=== PATIENT | female | born 1985 | race Caucasian/White ===

== ENCOUNTER 2020-04-25 00:20 | Emergency (ER) | payer MEDICAID, SELFPAY ==
[2020-04-25 00:22] VITALS: BP 94/59; PULSE 120; RESP 16; TEMP 35.6; O2SAT 98; BMI 20.9
--- NOTE | 2020-04-25 01:04 | ED_ITS ---
HPI - Female Genitourinary General Chief complaint: Urogenital-Female Stated complaint: Pain urinaring Time Seen by Provider: 04/25/20 01:25 Source: patient Mode of arrival: wheelchair Limitations: no limitations History of Present Illness HPI Narrative: 35-year-old female presents with 1 day of urinary tract symptoms and pyuria. she has taken Motrin and Naprosyn throughout the day but the pain to the left flank has gotten worse, and she is unable to tolerate eating or drinking at this time. She is having a difficult time walking because of left flank pain, and needed to be brought in to the emergency department from the waiting room via wheelchair. She denies chest pain and pressure, palpitations, shortness of breath, edema, nausea, vomiting, constipation, diarrhea, sick contacts, risk for sexually transmitted infection, vaginal discharge, abnormal vaginal bleeding, headache, dizziness, lightheadedness, and weakness. MD elicited complaint: dysuria and UTI Onset (ago): day(s) (1) Location of symptoms: urethra Severity: moderate Female Urogenital Radiation: Non-Radiating Severity scale (1-10): 7 Quality of pain: burning Consistency: intermittent Vaginal discharge: none Vaginal bleeding: none Urinary symptoms: Dysuria, Urgency and Frequency Exacerbating factors: urination Relieving factors: none Associated symptoms: denies other symptoms Treatment prior to arrival: none Sexual activity: No Patient : No Related Data Allergies Allergy/AdvReac Type Severity Reaction Status Date / Time No Known Allergies Allergy Verified 04/25/20 00:25 Review of Systems Review of Systems: Constitutional: No Fever, No Chills ENT/Mouth: No sore throat Eyes: No Eye Pain, No Swelling, No Redness Cardiovascular: No Chest Pain, No SOB Respiratory: No Cough, No Sputum, No Wheezing Gastrointestinal: positive Nausea, positive Vomiting, No Diarrhea, positive abdominal pain Genitourinary: positive Dysuria, positive urinary frequency, No Hematuria, positive Flank Pain, no hesitancy Musculoskeletal: No joint pain, No Myalgias Skin: No Skin Lesions, No rash Neuro: No Weakness, No Numbness, No Headache Psych: No Anxiety/Panic, No Depression Heme/Lymph: No Bruising, No Lymphadenopathy Endocrine: No Polyuria, No Polydipsia Yes all other systems are reviewed and are negative PMFSH Past Medical History Attestation statement: The following information was validated with the patient. Medical History Anxiety Depression Kidney stones Social History Social History Alcohol intake: unknown Smoked in Last 30 Days: No Use of substances other than those prescribed or required for medical reasons: No Advance Directives: No Advance Directives Information Provided: No Physical Exam Vital Signs: Vital Signs: Last Vital Signs Temp 96.0 F L 04/25/20 00:22 Pulse 120 H 04/25/20 00:22 Resp 16 04/25/20 00:22 BP 94/59 L 04/25/20 00:22 Pulse Ox 98 04/25/20 00:22 Body Mass Index 20.9 Appearance: Alert. Oriented X3. Moderate distress. Head: Normal external exam. Normocephalic. Atraumatic. No Blackwell signs noted. No raccoon eyes noted Eyes: PERRLA. EOMI. Conjunctiva and sclera normal. Eyelids normal. ENT: TM's Normal. Pharynx normal. Uvula midline. Moist mucous membranes. No trismus noted. No drooling noted. No muffled voice noted. Neck: Normal inspection. Neck supple. No adenopathy. No meningeal signs. CVS: tachycardic. Heart sound normal. No murmurs noted. Pulses equal to all extremities. Respiratory: No respiratory distress. Painless inspiration. Breath sounds normal. No wheezes/rales/rhonchi noted. Chest nontender. No accessory muscle usage noted or decreased air movement noted. Abdomen: Soft and tender to left lower quadrant and suprapubic area, positive psoas, negative Liu's, McBurney's, and obturator. Bowel sounds normal in all 4 quadrants. No distention noted. No organomegaly noted. No visible injury noted. Back: Positive left-sided CVA tenderness. Full range of motion noted. Skin: Skin warm and dry. Normal skin color. Normal skin turgor. No rashes/lesions/lacerations noted. Extremities: No lower extremity edema. Extremities exhibit normal range of motion. Neuro: cranial nerves 2-12 intact, no focal neural deficits, strength 5/5 to all extremities, No motor deficit. No sensory deficit. Course Course Course Narrative: 35-year-old female with past medical history of kidney stones, presents with left flank pain, dysuria, tachycardia, and hypotension. Triage vital signs indicate heart rate of 120, blood pressure of 94/59, and an oral temp of 96.0?. Fluid initiation started, 2 L infusing, 30 millilit ers/kilogram is 1770 mL of fluid. Lactic acid, cultures, CBC, Chem 7, urinalysis are pending. CT scan of the abdomen and pelvis pending. Order for ceftriaxone 1 g IV. Patient given 2 mg of morphine for pain, she did take 4 tablets of naproxen, and multiple doses of ibuprofen throughout the day With poor effect. Reevaluation(s) Reevaluation #1: CBC within normal limits, white count 8.9, no indication of sepsis at this time. We will still continue with fluid resuscitation as blood pressure is soft, Urinary negative which rules out ectopic , urinalysis indicates heme which is more likely kidney stone. Time: 01:55 Reevaluation #2: sign out to Dr Trejo Time: 02:20 MDM - Female Genitourinary MDM Narrative Medical decision making narrative: Sepsis, urosepsis, renal colic, pyelonephritis, acute abdomen, ectopic Differential Diagnosis Differential diagnosis: Likely urinary tract infection, ovarian cyst, ruptured ovarian cyst and cystitis Medical Records Attestation: I reviewed the patient's medical records. Lab Data Attestation: I reviewed the patient's lab results. Result diagrams: 04/25/20 01:35 04/25/20 01:35 Labs: Lab Results 04/25/20 04/25/20 04/25/20 Range/Units 01:35 01:35 01:35 WBC 8.9 (4.8-10.8) X10*3/uL RBC 4.54 (4.20-5.50) X10*6/uL Hgb 13.7 (12.0-16.0) g/dl Hct 40.7 (37-47) % MCV 89.6 (80-98) fL MCH 30.2 (27.0-33.0) pg MCHC 33.7 (31.0-35.0) g/dl RDW 12.6 (11.0-16.0) % Plt Count 275 (160-400) X10*3/uL MPV 9.5 (9.4-12.3) fL Immature Gran % (Auto) 0.2 (0.0-0.4) % Neut % (Auto) 50.6 (45-73) % Lymph % (Auto) 37.9 (20-40) % [place] % (Auto) 7.9 (2-11) % Eos % (Auto) 2.8 (0-4) % Baso % (Auto) 0.6 (0-2) % Lymph # (Auto) 3.4 (1.2-4.9) X10*3/uL [place] # (Auto) 0.7 (0.1-1.2) X10*3/uL Eos # (Auto) 0.3 (0.0-0.4) X10*3/uL Baso # (Auto) 0.1 (0.0-0.2) X10*3/uL Abs Immat Gran (auto) 0.02 (0.00-0.03) X10*3/uL Absolute Neuts (auto) 4.5 (2.0-8.3) X10*3/uL Absolute Nucleated RBC 0.000 (0.0-0.012) X10*3/uL Nucleated RBC % (auto) 0.0 (0.0-0.2) /100WBC Sodium 143 (135-145) mmol/L Potassium 3.5 (3.3-5.1) mmol/l Chloride 107 (96-108) mmol/L Carbon Dioxide 29 (22-29) mmol/L Anion Gap 11 L (12-20) BUN 11 (9-16) mg/dL Creatinine 0.76 (0.5-1.4) mg/dL Estim Creat Clear Calc 98.1 Estimated GFR > 60 Random Glucose 80 (60-115) mg/dL Lactic Acid 1.5 (0.5-2.0) mmol/L Calcium 9.5 (8.4-10.2) mg/dL Urine Color Urine Appearance Urine pH (5.0-8.0) Ur Specific [place] (1.005-1.025) Urine Protein (NEG-TRACE) MG/DL Urine Glucose (UA) (NEG) MG/DL Urine Ketones (NEG) MG/DL Urine Blood (NEG) Urine Nitrite (NEG) Ur Leukocyte Esterase (NEG) Urine RBC (0) /HPF Urine WBC (0-4) /HPF Ur Squamous Epith Cells /LPF Uric Acid Crystals /LPF Amorphous Sediment /LPF Urine Bacteria /LPF Urine Mucus /LPF Urine Test (NEGATIVE) 04/25/20 04/25/20 Range/Units 01:39 01:39 WBC (4.8-10.8) X10*3/uL RBC (4.20-5.50) X10*6/uL Hgb (12.0-16.0) g/dl Hct (37-47) % MCV (80-98) fL MCH (27.0-33.0) pg MCHC (31.0-35.0) g/dl RDW (11.0-16.0) % Plt Count (160-400) X10*3/uL MPV (9.4-12.3) fL Immature Gran % (Auto) (0.0-0.4) % Neut % (Auto) (45-73) % Lymph % (Auto) (20-40) % [place] % (Auto) (2-11) % Eos % (Auto) (0-4) % Baso % (Auto) (0-2) % Lymph # (Auto) (1.2-4.9) X10*3/uL [place] # (Auto) (0.1-1.2) X10*3/uL Eos # (Auto) (0.0-0.4) X10*3/uL Baso # (Auto) (0.0-0.2) X10*3/uL Abs Immat Gran (auto) (0.00-0.03) X10*3/uL Absolute Neuts (auto) (2.0-8.3) X10*3/uL Absolute Nucleated RBC (0.0-0.012) X10*3/uL Nucleated RBC % (auto) (0.0-0.2) /100WBC Sodium (135-145) mmol/L Potassium (3.3-5.1) mmol/l Chloride (96-108) mmol/L Carbon Dioxide (22-29) mmol/L Anion Gap (12-20) BUN (9-16) mg/dL Creatinine (0.5-1.4) mg/dL Estim Creat Clear Calc Estimated GFR Random Glucose (60-115) mg/dL Lactic Acid (0.5-2.0) mmol/L Calcium (8.4-10.2) mg/dL Urine Color PATTY Urine Appearance HAZY Urine pH 5.5 (5.0-8.0) Ur Specific [place] >= 1.030 H (1.005-1.025) Urine Protein 1+ H (NEG-TRACE) MG/DL Urine Glucose (UA) NEG (NEG) MG/DL Urine Ketones 15 (NEG) MG/DL Urine Blood 2+ H (NEG) Urine Nitrite NEG (NEG) Ur Leukocyte Esterase NEG (NEG) Urine RBC 5-9 H (0) /HPF Urine WBC 0-2 (0-4) /HPF Ur Squamous Epith Cells 3+ /LPF Uric Acid Crystals 1+ /LPF Amorphous Sediment 2+ /LPF Urine Bacteria 1+ /LPF Urine Mucus 2+ /LPF Urine Test NEGATIVE (NEGATIVE)
--- NOTE | 2020-04-25 01:24 | CT_ITS ---
EXAMINATION: CT ABDOMEN AND PELVIS WITHOUT CONTRAST CLINICAL INFORMATION: Abdominal pain, left flank pain. COMPARISON: 06/16/2019. TECHNIQUE: Contiguous axial thin section helical images of the abdomen and pelvis were performed without oral or IV contrast. The data set was reformatted in the coronal and sagittal planes and reviewed on an independent workstation. DLP: 422 mGy-cm. FINDINGS: The visualized lung bases are clear. The visualized portions of the heart are unremarkable. The liver is of normal size and attenuation without focal lesions nor intrahepatic biliary ductal dilation. A normal gallbladder is identified. There is no wall thickening or discernible pericholecystic fluid. The spleen, pancreas, adrenal glands are unremarkable. Both kidneys are of normal size and attenuation without hydronephrosis. Within the lower pole of the right kidney, there is an approximately 2 mm nonobstructive calculus. There is no abdominal free fluid. There is neither mesenteric nor retroperitoneal lymphadenopathy. Normal unopacified loops of small and large bowel are identified. There is no pelvic free fluid. The urinary bladder is unremarkable. There is neither pelvic nor inguinal lymphadenopathy. Bone windows: Neither sclerotic nor lytic bone lesions are identified. Posterior spinal fusion hardware is intact. CT/CT abdomen pelvis wo con IMPRESSION: No acute abdominal or pelvic inflammatory or infectious processes. 2 mm nonobstructive right lower pole renal calculus. Automated exposure control (Care Dose) Adjustment of the mA and/or kv according to patient size (this includes techniques or standardized protocols for targeted exams where dose is matched to indication / reason for exam; i.e. extremities or head).
[2020-04-25 01:41] LABS: PLT CLUMP 1; SCAN SMEAR FLAG 1
[2020-04-25] MEDS: Morphine Sulfate 2 MG/ML CARTRIDGE IVPUSH (01:41)
[2020-04-25 01:42] LABS: MANUAL DIFF FLAG NO
[2020-04-25] MEDS: 0.9 % Sodium Chloride 1,000 ML 999 ML IVCONT ×2 (01:42→01:43)
[2020-04-25 01:43] LABS: Basophils Absolute Auto 0.1 X10*3/uL (0.0-0.2); Basophils Percent Auto 0.6 % (0-2); Eosinophils Absolute Auto 0.3 X10*3/uL (0.0-0.4); Eosinophils Percent Auto 2.8 % (0-4); Hematocrit 40.7 % (37-47); Hemoglobin 13.7 g/dl (12.0-16.0); Imm Gran Abs Auto 0.02 X10*3/uL (0.00-0.03); Imm Gran Pct Auto 0.2 % (0.0-0.4); Lymphocytes Absolute Auto 3.4 X10*3/uL (1.2-4.9); Lymphocytes Percent Auto 37.9 % (20-40); Mean Corpuscular HGB Conc 33.7 g/dl (31.0-35.0); Mean Corpuscular Hemoglobin 30.2 pg (27.0-33.0); Mean Corpuscular Volume 89.6 fL (80-98); Mean Platelet Volume 9.5 fL (9.4-12.3); Monocytes Absolute Auto 0.7 X10*3/uL (0.1-1.2); Monocytes Percent Auto 7.9 % (2-11); Neutrophils Absolute Auto 4.5 X10*3/uL (2.0-8.3); Neutrophils Percent Auto 50.6 % (45-73); Platelet Count 275 X10*3/uL (160-400); Red Blood Count 4.54 X10*6/uL (4.20-5.50); Red Cell Distribution Width 12.6 % (11.0-16.0); White Blood Count 8.9 X10*3/uL (4.8-10.8)
[2020-04-25 01:48] LABS: Appearance Urine HAZY; Color Urine AMBER; Glucose Urine UA NEG (NEG); Leukocyte Esterase Urine NEG (NEG); Nitrite Urine NEG (NEG); PH 5.5 (5.0-8.0); Specific Gravity - Urine >= 1.030 (1.005-1.025); Urine Blood 2+ (NEG); Urine Ketones 15 MG/DL (NEG); Urine Protein 1+ MG/DL (NEG-TRACE)
[2020-04-25 01:49] LABS: UPreg QC Valid YES; Urine Pregnancy NEGATIVE (NEGATIVE)
[2020-04-25 01:55] LABS: Amorphous Sediment Urine 2+ /LPF; Bacteria Urine 1+ /LPF; Mucus Urine 2+ /LPF; Squamous Epithelial Cell Urine 3+ /LPF; Uric Acid Crystals Urine 1+ /LPF; WBC Urine 0-2 /HPF (0-4)
[2020-04-25 02:00] VITALS: BP 107/69; PULSE 86; RESP 16; TEMP 36; O2SAT 98
[2020-04-25] MEDS: cefTRIAXone sodium 1 GM in 0.9 % Sodium Chloride 50 ML IV (02:14)
[2020-04-25 02:16] LABS: Lactic Acid 1.5 mmol/L (0.5-2.0)
[2020-04-25 02:19] LABS: Anion Gap 11 (12-20); Blood Urea Nitrogen 11 mg/dL (9-16); Calcium 9.5 mg/dL (8.4-10.2); Carbon Dioxide 29 mmol/L (22-29); Chloride 107 mmol/L (96-108); Creatinine Clr Calc Pharmacy 98.1; Estimated Glomerular Filt Rate > 60; Glucose Random 80 mg/dL (60-115); Potassium 3.5 mmol/l (3.3-5.1); Sodium 143 mmol/L (135-145)
--- NOTE | 2020-04-25 02:21 | PC.NURSE ---
pt be rude and disrespectful after stating she been waiting for pain medication. I reported to pt she received pain mediacation from me. She continued to be rude and upset about pain medication, charge nurse and provider aware.
== END 2020-04-25 03:29 | disposition home or self-care (01) ==
PROVIDERS: Nurse Practitioner Family; Emergency Provider Student in an Organized Health Care Education/Training Program
DX: R30.0 Dysuria (principal); R39.15 Urgency of urination
CPT/HCPCS: 36415; 74176; 80048; 81001; 81025; 83605; 85025; 87040; 96361; 96374; 96375; 99284; J0696; J2270

== ENCOUNTER 2020-05-07 22:48 | Emergency (ER) | payer MEDICAID, SELFPAY ==
[2020-05-07 22:50] VITALS: BP 107/69; PULSE 85; RESP 18; TEMP 36.1; O2SAT 98
[2020-05-07 22:51] VITALS: BP 107/69; PULSE 85; RESP 18; TEMP 36.1; O2SAT 98; BMI 17.7
--- NOTE | 2020-05-07 23:33 | ED.GENADULT ---
HPI - General Adult General Chief complaint: General Medical Stated complaint: Abdominal Pain/Vomiting Time Seen by Provider: 05/07/20 22:50 Source: patient Mode of arrival: ambulatory Limitations: no limitations History of Present Illness HPI narrative: 35 yo female here with SPARKS since waking, then developed nausea/vomiting/diarrhea and epigastric pain with body aches. No fevers/chills/cough/shortness of breath or chest pain. No sick contact or recent travel. Onset (ago): day(s) Location: abdomen Radiation: non-radiation Severity: mild Quality: burning Pain Consistency: constant Relieving factors: none Exacerbating factors: none Associated symptoms: nausea/vomiting Treatments prior to arrival: none Related Data Previous Rx's Medication Instructions Recorded ciprofloxacin HCl [Cipro] 500 mg PO Q12H 7 Days #14 tab 04/25/20 ketorolac 10 mg PO Q6H PRN 5 Days #20 tab 04/25/20 prednisone 20 mg PO DAILY 5 Days #5 tab 04/25/20 tamsulosin [Flomax] 0.4 mg PO BEDTIME 5 Days #5 cap 04/25/20 Allergies Allergy/AdvReac Type Severity Reaction Status Date / Time No Known Allergies Allergy Verified 04/25/20 00:25 Review of Systems Review of Systems: Yes all other systems are reviewed and are negative Constitutional: Constitutional: Reports no additional constitutional complaints, Denies body ache(s), Denies chills, Denies fever(s), Denies headache(s) and Denies weakness Eyes: Eyes: Reports no additional eye complaints and Denies change in vision ENT: Reports system reviewed and no additional complaints, except as documented, Denies dizziness, Denies headache(s), Denies nasal congestion, Denies nasal discharge and Denies neck pain Cardiovascular: Cardiovascular: Reports no additional cardiovascular complaints, Denies chest pain, Denies leg edema and Denies dyspnea Respiratory: Respiratory: Reports no additional respiratory complaints, Denies cough and Denies dyspnea Gastrointestinal: Gastrointestinal: Reports no additional gastrointestinal complaints, Reports abdominal pain (epigastric ), Reports diarrhea, Reports nausea and Reports vomiting Genitourinary: Genitourinary: Reports no additional female genitourinary complaints and Denies urinary incontinence Musculoskeletal: Musculoskeletal: Reports no additional musculoskeletal complaints, Denies back pain, Denies arthralgias, Denies joint swelling, Denies neck pain, Denies numbness and Denies tingling Integumentary/Breasts: Skin/Breast: Reports system reviewed and no additional complaints, except as docu and Denies rash Neurologic: Reports system reviewed and no additional complaints, except as documented, Denies Abnormal speech present, Denies dizziness, Denies headache(s), Denies numbness, Denies tingling and Denies weakness PMFSH Past Medical History Attestation statement: The following information was validated with the patient. Source: old records reviewed and nursing notes reviewed Medical History Anxiety Depression Kidney stones Social History Social History Alcohol intake: never Smoking Status: Current every day smoker Smoked in Last 30 Days: Yes Use of substances other than those prescribed or required for medical reasons: No Advance Directives: No Advance Directives Information Provided: No Physical Exam Vital Signs: Vital Signs: Last Vital Signs Temp 98.7 F 05/08/20 01:42 Pulse 79 05/08/20 01:42 Resp 16 05/08/20 01:42 BP 102/60 05/08/20 01:42 Pulse Ox 97 05/08/20 01:42 Body Mass Index 17.7 Const: General: cooperative, healthy appearing, comfortable and no acute distress Orientation/consciousness: patient oriented x3 Limitations: no limitations HENMT: Head: Yes normal to inspection Ears: hearing grossly normal bilaterally General nose exam: Normal external nose present Face and sinus: Yes normal facial exam Mouth: Normal oral and palatal mucosa present Throat: Yes posterior oropharynx normal Eyes: General: appearance normal, both eyes and all related structures Pupils: Equal, round and reactive pupils present Neck: Neck: Yes normal visual inspection Chest: Chest palpation & inspection: normal inspection of the chest Resp: Effort & Inspection: normal respiratory effort Auscultation: clear to auscultation bilaterally Cardio: Rate: regular rate Rhythm: regular rhythm Peripheral pulses: Peripheral pulses 2+ throughout GI: Inspection: Yes normal to inspection Palpation (GI): Soft to palpation, Tenderness to palpation present (GI) in the epigastrum; with no rebound tenderness and no guarding Auscultation: normal bowel sounds Back/Spine/Pelvis: Thoracic/Lumbar Spine: thoracic and lumbar spine normal to inspection Skin: General skin exam: no rashes or lesions noted Neuro: General: patient oriented x3, no focal motor deficits and normal sensation to monofilament Cranial nerves: Yes Equal, round and reactive pupils present Cognition (Neuro): normal cognition Speech: No Abnormal speech present Gait exam (Neuro): Normal gait present Motor exam (neuro): 5/5 motor strength present throughout Extrem: General: Yes normal to inspection Course Course Course Narrative: 35 yo female here with vomiting, diarrhea, epigastric pain, body aches, headache since waking. On exam mild epigastric tenderness. Will need labs, UA, urine , COVID testing. Will give normal saline bolus, antiemetic and reassess. 0145-Labs unremarkable. UA negative. Fluids infusing, patient feeling improved, no longer nauseas. Repeat abdominal exam improved. 0200-Sign out to Dr Trejo pending above. Medical Decision Making MDM Narrative Medical decision making narrative: viral gastroenteritis, viral syndrome, COVID-19 infection Medical Records Medical records reviewed: Yes I reviewed the patient's medical records. Lab Data Lab results reviewed: Yes I reviewed the patient's lab results. Result diagrams: 05/07/20 23:29 05/07/20 23:54 Labs: Lab Results 05/07/20 05/07/20 05/07/20 Range/Units 23:29 23:54 23:54 WBC 11.8 H (4.8-10.8) X10*3/uL RBC 4.69 (4.20-5.50) X10*6/uL Hgb 14.2 (12.0-16.0) g/dl Hct 41.7 (37-47) % MCV 88.9 (80-98) fL MCH 30.3 (27.0-33.0) pg MCHC 34.1 (31.0-35.0) g/dl RDW 12.7 (11.0-16.0) % Plt Count 267 (160-400) X10*3/uL MPV 9.7 (9.4-12.3) fL Immature Gran % (Auto) 0.5 H (0.0-0.4) % Neut % (Auto) 69.9 (45-73) % Lymph % (Auto) 21.7 (20-40) % [place] % (Auto) 6.3 (2-11) % Eos % (Auto) 1.3 (0-4) % Baso % (Auto) 0.3 (0-2) % Lymph # (Auto) 2.6 (1.2-4.9) X10*3/uL [place] # (Auto) 0.7 (0.1-1.2) X10*3/uL Eos # (Auto) 0.2 (0.0-0.4) X10*3/uL Baso # (Auto) 0.0 (0.0-0.2) X10*3/uL Abs Immat Gran (auto) 0.06 H (0.00-0.03) X10*3/uL Absolute Neuts (auto) 8.2 (2.0-8.3) X10*3/uL Absolute Nucleated RBC 0.000 (0.0-0.012) X10*3/uL Nucleated RBC % (auto) 0.0 (0.0-0.2) /100WBC Sodium 139 (135-145) mmol/L Potassium 3.8 (3.3-5.1) mmol/l Chloride 106 (96-108) mmol/L Carbon Dioxide 22 (22-29) mmol/L Anion Gap 15 (12-20) BUN 17 H D (9-16) mg/dL Creatinine 0.77 (0.5-1.4) mg/dL Estim Creat Clear Calc 81.8 Estimated GFR > 60 Random Glucose 105 (60-115) mg/dL Calcium 8.9 D (8.4-10.2) mg/dL Magnesium 2.0 (1.6-2.6) mg/dL Total Bilirubin 0.5 (0.0-1.0) mg/dL Direct Bilirubin 0.2 (0.0-0.5) mg/dL AST 17 (5-31) U/L ALT 11 (0-31) U/L Alkaline Phosphatase 84 (39-117) U/L Total Protein 7.0 (6.5-8.0) g/dL Albumin 4.3 (3.5-5.0) g/dL Coronavirus (PCR) NEGATIVE (Negative) Influenza Type A (PCR) NEGATIVE (Negative) Influenza Type B (PCR) NEGATIVE (Negative) RSV RNA Qual (PCR) NEGATIVE (Negative) Discharge Plan Discharge Clinical Impression: Gastroenteritis Patient Disposition: Home, Self-Care Instructions: Gastroenteritis (ED) Additional Instructions: Start with clear liquids then advance diet as tolerated. Drink plenty of fluids. Prescriptions: No Action tamsulosin [Flomax] 0.4 mg capsule 0.4 mg PO BEDTIME 5 Days Qty: 5 RF: 0 prednisone 20 mg tablet 20 mg PO DAILY 5 Days Qty: 5 RF: 0 ciprofloxacin HCl [Cipro] 500 mg tablet 500 mg PO Q12H 7 Days Qty: 14 RF: 0 ketorolac 10 mg tablet 10 mg PO Q6H PRN (Reason: pain) 5 Days Qty: 20 RF: 0 Referrals: Physician,Unknown [Primary Care Provider] - 2 days
[2020-05-07] MEDS: 0.9 % Sodium Chloride 1,000 ML 999 ML IV (23:48)
[2020-05-07] MEDS: ondansetron HCL 4 MG/2 ML VIAL IVPUSH (23:48)
[2020-05-07] MEDS: Famotidine/PF 20 MG/2 ML VIAL IVPUSH (23:48)
[2020-05-07] MEDS: Ketorolac Tromethamine 30 MG/ML VIAL IVPUSH (23:49)
[2020-05-08] LABS: Basophils Percent Auto 0.3 % (0-2); Eosinophils Absolute Auto 0.2 X10*3/uL (0.0-0.4); Eosinophils Percent Auto 1.3 % (0-4); Hematocrit 41.7 % (37-47); Hemoglobin 14.2 g/dl (12.0-16.0); Imm Gran Abs Auto 0.06 X10*3/uL (0.00-0.03); Imm Gran Pct Auto 0.5 % (0.0-0.4); Lymphocytes Absolute Auto 2.6 X10*3/uL (1.2-4.9); Lymphocytes Percent Auto 21.7 % (20-40); MANUAL DIFF FLAG NO; Mean Corpuscular HGB Conc 34.1 g/dl (31.0-35.0); Mean Corpuscular Hemoglobin 30.3 pg (27.0-33.0); Mean Corpuscular Volume 88.9 fL (80-98); Mean Platelet Volume 9.7 fL (9.4-12.3); Monocytes Absolute Auto 0.7 X10*3/uL (0.1-1.2); Monocytes Percent Auto 6.3 % (2-11); Neutrophils Absolute Auto 8.2 X10*3/uL (2.0-8.3); Neutrophils Percent Auto 69.9 % (45-73); Platelet Count 267 X10*3/uL (160-400); Red Blood Count 4.69 X10*6/uL (4.20-5.50); Red Cell Distribution Width 12.7 % (11.0-16.0); White Blood Count 11.8 X10*3/uL (4.8-10.8)
--- NOTE | 2020-05-08 | PC.NURSE ---
Patient received medication and settled down. Patient stating improvement in abdominal pain.
[2020-05-08 00:30] LABS: Alanine Aminotransferase 11 U/L (0-31); Albumin Level 4.3 g/dL (3.5-5.0); Alkaline Phosphatase 84 U/L (39-117); Anion Gap 15 (12-20); Aspartate Amino Transferase 17 U/L (5-31); Bilirubin Direct 0.2 mg/dL (0.0-0.5); Bilirubin Total 0.5 mg/dL (0.0-1.0); Blood Urea Nitrogen 17 mg/dL (9-16); Calcium 8.9 mg/dL (8.4-10.2); Carbon Dioxide 22 mmol/L (22-29); Chloride 106 mmol/L (96-108); Creatinine Clr Calc Pharmacy 81.8; Estimated Glomerular Filt Rate > 60; Glucose Random 105 mg/dL (60-115); Potassium 3.8 mmol/l (3.3-5.1); Sodium 139 mmol/L (135-145)
[2020-05-08 00:45] LABS: Influenza A PCR NEGATIVE (Negative); Influenza B PCR NEGATIVE (Negative); Resp Syncy Virus RNA Qual PCR NEGATIVE (Negative); SARS COV2 PCR INHOUSE NEGATIVE (Negative)
[2020-05-08 01:42] VITALS: BP 102/60; PULSE 79; RESP 16; TEMP 37.1; O2SAT 97
[2020-05-08] MEDS: 0.9 % Sodium Chloride 1,000 ML 999 ML IV (01:49)
--- NOTE | 2020-05-08 02:24 | PC.NURSE ---
Patient able to sleep and po challenged and tolerated challenge. Patient has not vomited in 3 hours post medication
== END 2020-05-08 03:32 | disposition home or self-care (01) ==
PROVIDERS: Nurse Practitioner Family; Emergency Provider Emergency Medicine
DX: K52.9 Noninfective gastroenteritis and colitis, unspecified (principal); R10.13 Epigastric pain; F17.200 Nicotine dependence, unspecified, uncomplicated; Z79.899 Other long term (current) drug therapy; Z71.6 Tobacco abuse counseling
CPT/HCPCS: 0241U; 36415; 80048; 80076; 83735; 85025; 96361; 96374; 96375; 99284; J1885; J2405

== ENCOUNTER 2020-05-08 17:26 | Emergency (ER) | payer MEDICAID, SELFPAY ==
[2020-05-08 17:47] VITALS: BP 110/60; PULSE 86; RESP 18; TEMP 37.2; O2SAT 99; BMI 19.3
--- NOTE | 2020-05-08 18:28 | ECG_ITS ---
Test Reason : ABDOMINAL PAIN Blood Pressure : / mmHG Vent. Rate : 063 BPM Atrial Rate : 063 BPM P-R Int : 110 ms QRS Dur : 082 ms QT Int : 428 ms P-R-T Axes : 036 047 024 degrees QTc Int : 437 ms Sinus rhythm with short WA with Premature atrial complexes RSR' or QR pattern in V1 suggests right ventricular conduction delay Nonspecific T wave abnormality Abnormal ECG When compared with ECG of 16-JUN-2019 22:24, Premature atrial complexes are now Present T wave amplitude has decreased in Anterior leads Heart rate has decreased Referred By: Terese Pepper Electronically Signed By:SYDNEE CASAS MD
--- NOTE | 2020-05-08 18:28 | XR_ITS ---
EXAMINATION: XR CHEST CLINICAL INFORMATION: Pain COMPARISON: 08/20/2019 TECHNIQUE: Frontal view of the chest was obtained. FINDINGS: No significant abnormality is noted involving the heart, lungs, mediastinum, bony thorax or soft tissues. Hardware posterior fusion of the dorsal spine in place unchanged. XR/XR chest 1V IMPRESSION: No radiographic evidence of acute infiltrate
--- NOTE | 2020-05-08 18:28 | ED.ABDPAIN ---
HPI - Abdominal Pain General Chief Complaint: Abdominal Pain Stated Complaint: vomiting Time Seen by Provider: 05/08/20 18:33 Source: patient Mode of arrival: ambulatory Limitations: no limitations History of Present Illness HPI narrative: 35-year-old female with history of gastroenteritis and renal calculus presents for the 3rd day in a row for epigastric abdominal pain and burning, nausea, vomiting, and poor p.o. intake. MD elicited complaint: abdominal pain Pertinent past history: kidney stones Onset (ago): day(s) (2) Pain Consistency: constant Location: diffuse and epigastric Severity: severe Pain scale (0-10): 10 Quality: stabbing and burning Radiation: none Exacerbating factors: eating and vomiting Relieving factors: nothing Associated symptoms: nausea and vomiting Treatments prior to arrival: NSAIDs Related Data Previous Rx's Medication Instructions Recorded ciprofloxacin HCl [Cipro] 500 mg PO Q12H 7 Days #14 tab 04/25/20 ketorolac 10 mg PO Q6H PRN 5 Days #20 tab 04/25/20 prednisone 20 mg PO DAILY 5 Days #5 tab 04/25/20 tamsulosin [Flomax] 0.4 mg PO BEDTIME 5 Days #5 cap 04/25/20 dicyclomine 20 mg PO TID PRN #30 tab 05/08/20 metoclopramide HCl [Reglan] 10 mg PO Q6H PRN #7 tab 05/08/20 Allergies Allergy/AdvReac Type Severity Reaction Status Date / Time No Known Allergies Allergy Verified 05/08/20 17:47 Review of Systems Review of Systems Constitutional: No Weight loss, No Fever, No Chills, No Night Sweats, No Fatigue, No Malaise ENT/Mouth: No Hearing loss, No Ear Pain, No Nasal Congestion, No Sinus Pain, No Hoarseness, No sore throat, No Rhinorrhea, No Swallowing Difficulty Eyes: No Eye Pain, No Swelling, No Redness, No Foreign Body, No Discharge, No Vision Changes Cardiovascular: No Chest Pain, No SOB, No Dyspnea on Exertion, No Orthopnea, No Edema, No Palpitations Respiratory: No Cough, No Sputum, No Wheezing, No Smoke Exposure, No Dyspnea Gastrointestinal: Positive Nausea, Positive Vomiting, No Diarrhea, positive abdominal Pain, No Hematochezia, No Melena Genitourinary: no irregular bleeding, No Dysuria, No Urinary Frequency, No Hematuria, No Urinary Incontinence, No Urgency, No Flank Pain, No Urinary Flow Changes, No Hesitancy Musculoskeletal: No joint pain, No Myalgias, No Joint Swelling Skin: No Skin Lesions, No rash Neuro: No Weakness, No Numbness, No Paresthesias, No Loss of Consciousness, No Dizziness, No Headache Psych: No Anxiety/Panic, No Depression, No SI/HI/AH/VH, No Social Issues Heme/Lymph: No Bruising, No Bleeding,No Lymphadenopathy Endocrine: No Polyuria, No Polydipsia, No Temperature Intolerance Yes all other systems are reviewed and are negative Physical Exam Vital Signs: Vital Signs: Last Vital Signs Temp 98.8 F 05/08/20 20:35 Pulse 68 05/08/20 20:35 Resp 18 05/08/20 20:35 BP 100/59 L 05/08/20 20:35 Pulse Ox 100 05/08/20 20:35 Body Mass Index 19.3 Appearance: Alert. Oriented X3. moderate distress. Eyes: Pupils equal, round and reactive to light. ENT: Pharynx normal. Neck: Normal inspection. Neck supple. CVS: Normal heart rate and rhythm. Pulses normal. Respiratory: No respiratory distress. Breath sounds normal. Abdomen: Soft and tender diffusely. Skin: Skin warm and dry. Normal skin color. Normal skin turgor. Extremities: No lower extremity edema. Neuro: No motor deficit. No sensory deficit. Course Course Course Narrative: 35-year-old female presents with nausea, vomiting, abdominal pain was diagnosed with gastroenteritis and kidney stone, this is her 2nd visit in the past [address] hours. We will order CT scan of the abdomen pelvis. Give 2 L of normal saline. Pain management with morphine and IV Zofran. CT scan of the abdomen shows nonobstructing renal calculus x-rays negative for acute findings, EKG is normal with prolonged QT. plan of care is to discharge home with the medications that which she was prescribed at an earlier time. We will add Reglan and Bentyl for pain management. Patient verbalized understanding of and agrees to plan of care to discharge home. MDM - Abdominal Pain Differential Diagnosis Differential diagnosis: Likely abdominal pain, acute appendicitis, bowel perforation, calculus of kidney, diverticulitis, endometriosis, gastroenteritis, gastritis, mesenteric ischemia, ovarian cyst, pancreatitis, peptic ulcer disease, renal colic and small bowel obstruction Medical Records Attestation: I reviewed the patient's medical records. Lab Data Attestation: I reviewed the patient's lab results. Result diagrams: 05/08/20 18:42 05/08/20 18:42 Labs: Lab Results 05/08/20 05/08/20 05/08/20 Range/Units 18:42 18:42 18:42 WBC 11.4 H (4.8-10.8) X10*3/uL RBC 4.73 (4.20-5.50) X10*6/uL Hgb 14.3 (12.0-16.0) g/dl Hct 41.9 (37-47) % MCV 88.6 (80-98) fL MCH 30.2 (27.0-33.0) pg MCHC 34.1 (31.0-35.0) g/dl RDW 12.8 (11.0-16.0) % Plt Count 261 (160-400) X10*3/uL MPV 9.2 L (9.4-12.3) fL Immature Gran % (Auto) 0.4 (0.0-0.4) % Neut % (Auto) 75.3 H (45-73) % Lymph % (Auto) 18.6 L (20-40) % [place] % (Auto) 4.1 (2-11) % Eos % (Auto) 1.2 (0-4) % Baso % (Auto) 0.4 (0-2) % Lymph # (Auto) 2.1 (1.2-4.9) X10*3/uL [place] # (Auto) 0.5 (0.1-1.2) X10*3/uL Eos # (Auto) 0.1 (0.0-0.4) X10*3/uL Baso # (Auto) 0.1 (0.0-0.2) X10*3/uL Abs Immat Gran (auto) 0.05 H (0.00-0.03) X10*3/uL Absolute Neuts (auto) 8.6 H (2.0-8.3) X10*3/uL Absolute Nucleated RBC 0.000 (0.0-0.012) X10*3/uL Nucleated RBC % (auto) 0.0 (0.0-0.2) /100WBC Sodium 142 (135-145) mmol/L Potassium 3.4 (3.3-5.1) mmol/l Chloride 110 H (96-108) mmol/L Carbon Dioxide 22 (22-29) mmol/L Anion Gap 13 (12-20) BUN 9 (9-16) mg/dL Creatinine 0.73 (0.5-1.4) mg/dL Estim Creat Clear Calc 94.2 Estimated GFR > 60 Random Glucose 111 (60-115) mg/dL Calcium 8.7 (8.4-10.2) mg/dL Magnesium 1.8 (1.6-2.6) mg/dL Total Bilirubin 0.6 (0.0-1.0) mg/dL Direct Bilirubin 0.2 (0.0-0.5) mg/dL AST 15 (5-31) U/L ALT 12 (0-31) U/L Alkaline Phosphatase 77 (39-117) U/L Troponin I High Sens (<3.5-17.0) ng/L Total Protein 7.0 (6.5-8.0) g/dL Albumin 4.4 (3.5-5.0) g/dL Lipase 5 L (8-78) U/L //20 Range/Units 18:42 WBC (4.8-10.8) X10*3/uL RBC (4.20-5.50) X10*6/uL Hgb (12.0-16.0) g/dl Hct (37-47) % MCV (80-98) fL MCH (27.0-33.0) pg MCHC (31.0-35.0) g/dl RDW (11.0-16.0) % Plt Count (160-400) X10*3/uL MPV (9.4-12.3) fL Immature Gran % (Auto) (0.0-0.4) % Neut % (Auto) (45-73) % Lymph % (Auto) (20-40) % [place] % (Auto) (2-11) % Eos % (Auto) (0-4) % Baso % (Auto) (0-2) % Lymph # (Auto) (1.2-4.9) X10*3/uL [place] # (Auto) (0.1-1.2) X10*3/uL Eos # (Auto) (0.0-0.4) X10*3/uL Baso # (Auto) (0.0-0.2) X10*3/uL Abs Immat Gran (auto) (0.00-0.03) X10*3/uL Absolute Neuts (auto) (2.0-8.3) X10*3/uL Absolute Nucleated RBC (0.0-0.012) X10*3/uL Nucleated RBC % (auto) (0.0-0.2) /100WBC Sodium (135-145) mmol/L Potassium (3.3-5.1) mmol/l Chloride (96-108) mmol/L Carbon Dioxide (22-29) mmol/L Anion Gap (12-20) BUN (9-16) mg/dL Creatinine (0.5-1.4) mg/dL Estim Creat Clear Calc Estimated GFR Random Glucose (60-115) mg/dL Calcium (8.4-10.2) mg/dL Magnesium (1.6-2.6) mg/dL Total Bilirubin (0.0-1.0) mg/dL Direct Bilirubin (0.0-0.5) mg/dL AST (5-31) U/L ALT (0-31) U/L Alkaline Phosphatase (39-117) U/L Troponin I High Sens < 3.5 (<3.5-17.0) ng/L Total Protein (6.5-8.0) g/dL Albumin (3.5-5.0) g/dL Lipase (8-78) U/L Imaging Data CT scan - abdomen: Attestation: I personally reviewed and interpreted this imaging study as follows: Radiologist's impression: EXAMINATION: CT ABDOMEN AND PELVIS WITHOUT CONTRAST CLINICAL INFORMATION: Abdominal pain, left flank pain. COMPARISON: 06/16/2019. TECHNIQUE: Contiguous axial thin section helical images of the abdomen and pelvis were performed without oral or IV contrast. The data set was reformatted in the coronal and sagittal planes and reviewed on an independent workstation. DLP: 422 mGy-cm. FINDINGS: The visualized lung bases are clear. The visualized portions of the heart are unremarkable. The liver is of normal size and attenuation without focal lesions nor intrahepatic biliary ductal dilation. A normal gallbladder is identified. There is no wall thickening or discernible pericholecystic fluid. The spleen, pancreas, adrenal glands are unremarkable. Both kidneys are of normal size and attenuation without hydronephrosis. Within the lower pole of the right kidney, there is an approximately 2 mm nonobstructive calculus. There is no abdominal free fluid. There is neither mesenteric nor retroperitoneal lymphadenopathy. Normal unopacified loops of small and large bowel are identified. There is no pelvic free fluid. The urinary bladder is unremarkable. There is neither pelvic nor inguinal lymphadenopathy. Bone windows: Neither sclerotic nor lytic bone lesions are identified. Posterior spinal fusion hardware is intact. CT/CT abdomen pelvis wo con IMPRESSION: No acute abdominal or pelvic inflammatory or infectious processes. 2 mm nonobstructive right lower pole renal calculus. Automated exposure control (Care Dose) Adjustment of the mA and/or kv according to patient size (this includes techniques or standardized protocols for targeted exams where dose is matched to indication / reason for exam; i.e. extremities or head). ECG Data Attestation: I personally reviewed and interpreted this ECG as follows: ECG interpretation date: 05/08/20 ECG interpretation time: 19:22 Prior ECG tracings: not available for review Interpretation: ventricular rate 63 beats per minute, p.r. interval 110, QTC 428, QTC 437, sinus rhythm with short RI interval with premature atrial complexes, otherwise normal EKG. prior EKG unavailable secondary to system failure Scores Heart Score History: -0- slightly suspicious ECG: -0- normal Age: -0- < or = 45 Risk factory: -0- no risk factors known Troponin: -0- < or = normal limit Score: 0 Risk: 1.7% Discharge Plan Discharge Clinical Impression: Gastroenteritis, Calculus of kidney Patient Disposition: Home, Self-Care Instructions: Kidney Stones (ED), Gastroenteritis (ED) Additional Instructions: you were evaluated for abdominal pain, nausea, and vomiting. CT scan of the abdomen shows nonobstructing renal stone, please continue take medications that were prescribed you at an earlier time. We will add Reglan for nausea, we also prescribed Bentyl for abdominal pain. Maalox and lidocaine for reflux, this medication was called into the pharmacy for you. Please take these medications as prescribed. Thank you for choosing this emergency department for evaluation. Please follow-up with primary care physician as needed. Return to the emergency department for any new, concerning, or worsening symptoms. Prescriptions: New dicyclomine 20 mg tablet 20 mg PO TID PRN (Reason: abdominal pain and cramping) Qty: 30 RF: 0 metoclopramide HCl [Reglan] 10 mg tablet 10 mg PO Q6H PRN (Reason: nausea and vomiting) Qty: 7 RF: 0 No Action tamsulosin [Flomax] 0.4 mg capsule 0.4 mg PO BEDTIME 5 Days Qty: 5 RF: 0 prednisone 20 mg tablet 20 mg PO DAILY 5 Days Qty: 5 RF: 0 ciprofloxacin HCl [Cipro] 500 mg tablet 500 mg PO Q12H 7 Days Qty: 14 RF: 0 ketorolac 10 mg tablet 10 mg PO Q6H PRN (Reason: pain) 5 Days Qty: 20 RF: 0 Interventions: ED Discharge Assessment Last Done: 05/08/20 20:41 Discharge Date/Time: 05/08/20 20:43 [facility] Past Medical History Attestation statement: The following information was validated with the patient. Source: old records reviewed Medical History Anxiety Depression Kidney stones Social History Social History Alcohol intake: unknown Smoking Status: Current every day smoker Use of substances other than those prescribed or required for medical reasons: Unknown Advance Directives: No Advance Directives Information Provided: Yes
[2020-05-08] MEDS: 0.9 % Sodium Chloride 1,000 ML 999 ML IVCONT ×2 (18:48→19:35)
[2020-05-08] MEDS: Morphine Sulfate 4 MG/ML CARTRIDGE IVPUSH (18:48)
[2020-05-08] MEDS: ondansetron HCL 4 MG/2 ML VIAL IVPUSH (18:48)
[2020-05-08 18:49] LABS: MANUAL DIFF FLAG NO
[2020-05-08 18:51] LABS: Basophils Absolute Auto 0.1 X10*3/uL (0.0-0.2); Basophils Percent Auto 0.4 % (0-2); Eosinophils Absolute Auto 0.1 X10*3/uL (0.0-0.4); Eosinophils Percent Auto 1.2 % (0-4); Hematocrit 41.9 % (37-47); Hemoglobin 14.3 g/dl (12.0-16.0); Imm Gran Abs Auto 0.05 X10*3/uL (0.00-0.03); Imm Gran Pct Auto 0.4 % (0.0-0.4); Lymphocytes Absolute Auto 2.1 X10*3/uL (1.2-4.9); Lymphocytes Percent Auto 18.6 % (20-40); Mean Corpuscular HGB Conc 34.1 g/dl (31.0-35.0); Mean Corpuscular Hemoglobin 30.2 pg (27.0-33.0); Mean Corpuscular Volume 88.6 fL (80-98); Mean Platelet Volume 9.2 fL (9.4-12.3); Monocytes Absolute Auto 0.5 X10*3/uL (0.1-1.2); Monocytes Percent Auto 4.1 % (2-11); Neutrophils Absolute Auto 8.6 X10*3/uL (2.0-8.3); Neutrophils Percent Auto 75.3 % (45-73); Platelet Count 261 X10*3/uL (160-400); Red Blood Count 4.73 X10*6/uL (4.20-5.50); Red Cell Distribution Width 12.8 % (11.0-16.0); White Blood Count 11.4 X10*3/uL (4.8-10.8)
[2020-05-08 19:23] LABS: Magnesium 1.8 mg/dL (1.6-2.6)
[2020-05-08 19:24] LABS: Alanine Aminotransferase 12 U/L (0-31); Albumin Level 4.4 g/dL (3.5-5.0); Alkaline Phosphatase 77 U/L (39-117); Anion Gap 13 (12-20); Aspartate Amino Transferase 15 U/L (5-31); Bilirubin Direct 0.2 mg/dL (0.0-0.5); Bilirubin Total 0.6 mg/dL (0.0-1.0); Blood Urea Nitrogen 9 mg/dL (9-16); Calcium 8.7 mg/dL (8.4-10.2); Carbon Dioxide 22 mmol/L (22-29); Chloride 110 mmol/L (96-108); Creatinine Clr Calc Pharmacy 94.2; Estimated Glomerular Filt Rate > 60; Glucose Random 111 mg/dL (60-115); Lipase 5 U/L (8-78); Potassium 3.4 mmol/l (3.3-5.1); Sodium 142 mmol/L (135-145)
[2020-05-08 19:26] LABS: Troponin-I High Sensitivity < 3.5 ng/L (<3.5-17.0)
[2020-05-08] MEDS: Magnesium Hydrox/Alum Hydrox 30 ML ORAL.SUSP PO (19:40)
[2020-05-08] MEDS: Lidocaine HCl Viscous 2 % 15 ML SOLUTION MUCOUS MEM (19:40)
[2020-05-08] MEDS: PHENobarb/Hyoscy/Atropine/Scop 10 ML ELIXIR PO (19:40)
[2020-05-08 19:46] VITALS: BP 127/91; PULSE 86; RESP 18; O2SAT 99
[2020-05-08 20:35] VITALS: BP 100/59; PULSE 68; RESP 18; TEMP 37.1; O2SAT 100
== END 2020-05-08 20:43 | disposition home or self-care (01) ==
PROVIDERS: Nurse Practitioner Family; Emergency Provider Emergency Medicine
DX: K52.9 Noninfective gastroenteritis and colitis, unspecified (principal); N20.0 Calculus of kidney; R10.13 Epigastric pain; R11.2 Nausea with vomiting, unspecified; F17.200 Nicotine dependence, unspecified, uncomplicated; Z79.899 Other long term (current) drug therapy; Z71.6 Tobacco abuse counseling
CPT/HCPCS: 36415; 71045; 80048; 80076; 83690; 83735; 84484; 85025; 93005; 96361; 96374; 96375; 99284; J2270; J2405

== ENCOUNTER 2020-05-09 04:17 | Emergency (ER) | payer MEDICAID, SELFPAY ==
[2020-05-09 04:18] VITALS: BP 125/81; RESP 22; TEMP 36.9; O2SAT 98; BMI 17.2
--- NOTE | 2020-05-09 04:31 | CT_ITS ---
EXAMINATION: CT ABDOMEN AND PELVIS WITHOUT CONTRAST CLINICAL INFORMATION: Flank pain COMPARISON: 04/25/2020 TECHNIQUE: Multidetector volumetric imaging was performed from the superior aspect of the liver through the pubic symphysis. Sagittal and coronal reformatted images were obtained on the technologist's workstation. This CT examination was performed using dose optimization techniques as appropriate, variously including the following: *Automated exposure control *Adjustment of mA and/or kV according to patient size (this includes techniques or standardized protocols for targeted exams where dose is matched to indication/reason for exam; i.e. extremities or head) *Use of iterative reconstruction technique DLP: 404 mGy-cm FINDINGS: LUNG BASES: 0.4 cm right lower lobe nodule on series 6 image 3. LIVER, GALLBLADDER, AND BILIARY TREE: The liver is normal in size, shape, and attenuation. No focal hepatic lesion or biliary ductal dilatation is present. The gallbladder is unremarkable with no evidence of radiopaque gallstones, gallbladder wall thickening, or obvious pericholecystic inflammatory changes. PANCREAS: Unremarkable. SPLEEN: Unremarkable. ADRENAL GLANDS: Unremarkable. KIDNEYS AND URETERS: Evaluation of the kidneys is limited due to artifact from spinal hardware. The kidneys are normal in size, shape, and attenuation. No hydronephrosis, hydroureter, or calculi seen. No perinephric stranding. BLADDER: Unremarkable. GASTROINTESTINAL TRACT: Stomach is unremarkable. Normal caliber small bowel. No obstruction. No colonic wall thickening or inflammatory change. Normal appendix. No free air. Small amount of free fluid in the pelvis. ABDOMINAL WALL: No significant hernia is appreciated. LYMPH NODES: Normal. VASCULAR: Unremarkable. PELVIC VISCERA: Retroverted uterus. No adnexal mass. OSSEOUS STRUCTURES: Diffuse spinal hardware. No acute osseous abnormality. CT/CT abdomen pelvis wo con IMPRESSION: No acute findings in the abdomen or pelvis. Of note, evaluation of the kidneys is limited due to artifact from spinal hardware. No hydronephrosis or nephrolithiasis seen.
[2020-05-09] MEDS: diphenhydrAMINE HCL 50 MG/ML VIAL 25 MG IVPUSH (05:23)
[2020-05-09] MEDS: 0.9 % Sodium Chloride 1,000 ML 1000 ML IV (05:23)
[2020-05-09] MEDS: Metoclopramide HCl 10 MG/2 ML VIAL IVPUSH (05:24)
[2020-05-09] MEDS: Famotidine/PF 20 MG/2 ML VIAL IVPUSH (05:24)
[2020-05-09 05:34] LABS: Glucose Urine UA NEG (NEG); Leukocyte Esterase Urine NEG (NEG); Nitrite Urine NEG (NEG); Specific Gravity - Urine 1.015 (1.005-1.025); Urine Blood NEG (NEG); Urine Ketones 15 MG/DL (NEG); Urine Protein NEG (NEG-TRACE)
[2020-05-09 05:35] LABS: Appearance Urine CLOUDY; Color Urine YELLOW; UACC Culture Trigger NO
[2020-05-09 06:00] LABS: Amphetamine Screen Urine Not Detected (Not Detect); Barbiturates, Urine POSITIVE (Not Detect); Benzodiazepines Screen Urine Not Detected (Not Detect); Cannabinoid Screen Urine Not Detected (Not Detect); Cocaine Screen Urine POSITIVE (Not Detect); Opiate Screen Urine POSITIVE (Not Detect); Phencyclidine Screen Urine Not Detected (Not Detect)
[2020-05-09] MEDS: Lidocaine HCl Viscous 2 % 15 ML SOLUTION 10 ML MUCOUS MEM (06:06)
[2020-05-09] MEDS: Magnesium Hydrox/Alum Hydrox 30 ML ORAL.SUSP PO (06:06)
[2020-05-09] MEDS: Prochlorperazine Edisylate 10 MG/2 ML VIAL 5 MG IVPUSH (06:07)
--- NOTE | 2020-05-09 06:43 | ED_ITS ---
HPI - Abdominal Pain General Chief Complaint: Abdominal Pain Stated Complaint: Abd pain/Vomiting Time Seen by Provider: 05/09/20 04:27 Source: patient Mode of arrival: ambulatory Limitations: no limitations History of Present Illness HPI narrative: This is a 55-year-old female who presents for the 3rd time to the emergency department for complaints of nausea, vomiting, epigastric discomfort. Patient denies any alcohol or drug use. Related Data Previous Rx's Medication Instructions Recorded ciprofloxacin HCl [Cipro] 500 mg PO Q12H 7 Days #14 tab 04/25/20 ketorolac 10 mg PO Q6H PRN 5 Days #20 tab 04/25/20 prednisone 20 mg PO DAILY 5 Days #5 tab 04/25/20 tamsulosin [Flomax] 0.4 mg PO BEDTIME 5 Days #5 cap 04/25/20 dicyclomine 20 mg PO TID PRN #30 tab 05/08/20 metoclopramide HCl [Reglan] 10 mg PO Q6H PRN #7 tab 05/08/20 Allergies Allergy/AdvReac Type Severity Reaction Status Date / Time No Known Allergies Allergy Verified 05/08/20 17:47 Review of Systems Review of Systems Pertinent positives and negatives as stated in HPI 10 point review of systems is otherwise negative. Physical Exam Vital Signs: Vital Signs: Last Vital Signs Temp 98.4 F 05/09/20 04:18 Resp 22 H 05/09/20 04:18 BP 125/81 05/09/20 04:18 Pulse Ox 98 05/09/20 04:18 Body Mass Index 17.2 VITAL SIGNS: Reviewed. GENERAL: Well developed, well nourished, in no acute distress. HEAD: Normocephalic/atraumatic, EYES: PERRLA, EOMI intact without pain, no nystagmus/pallor/icterus noted EARS: Ext canals without abnormality, TMs non-bulging and non-erythematous NOSE: Nares patent bilateral OROPHARYNX: no oral lesions noted, posterior pharynx clear and non-erythematous without noted tonsillar enlargement/erythema/exudates NECK: Supple, no adenopathy LUNGS: Normal breath sounds. No adventitious sounds or accessory muscle use. SpO2<98> CARDIOVASCULAR: Regular rate and rhythm without noted murmurs, no JVD or lower extremity edema. ABDOMEN: Soft, non-tender, non-distended with bowel sounds. No rigidity. No guarding. No palpable masses or hernias noted MUSCULOSKELETAL: No tenderness, deformities, or effusions noted on gross inspection. EXTREMITIES: No cyanosis, clubbing or edema. SKIN: Inspection of the skin reveals no rashes, ulcerations, jaundice, pallor, or petechiae. NEUROLOGIC: Alert and oriented x 4. Strength and sensation to light touch were grossly intact x 4. Course Course Course Narrative: 35-year-old female with history and clinical presentation consistent with suspected cyclical vomiting of unknown etiology. However, on urine tox it is noted to be positive for opiates, barbiturates, cocaine but negative for marijuana. Other laboratory evaluation was not obtained due to previous lab draw within 24 hours without notable findings. patient received 1 L of fluids, and a combination of antiemetics with gradual improvement in nausea and vomiting. Repeat CT scan was conducted due to prior scan showing renal stones but was negative for any acute findings. Urine is negative and urinalysis was without acute findings. Patient signed out to Dr. Gutierrez [facility] - Abdominal Pain Lab Data Labs: Lab Results 05/09/20 05/09/20 Range/Units 05:28 05:28 Urine Color YELLOW Urine Appearance CLOUDY Urine pH 8.0 (5.0-8.0) Ur Specific [place] 1.015 (1.005-1.025) Urine Protein NEG (NEG-TRACE) MG/DL Urine Glucose (UA) NEG (NEG) MG/DL Urine Ketones 15 (NEG) MG/DL Urine Blood NEG (NEG) Urine Nitrite NEG (NEG) Ur Leukocyte Esterase NEG (NEG) Urine Opiates Screen POSITIVE H (Not Detect) Ur Barbiturates Screen POSITIVE H (Not Detect) Ur Phencyclidine Scrn Not Detected (Not Detect) Ur Amphetamines Screen Not Detected (Not Detect) U Benzodiazepines Scrn Not Detected (Not Detect) Urine Cocaine Screen POSITIVE H (Not Detect) U Marijuana (THC) Screen Not Detected (Not Detect) Discharge Plan Discharge Prescriptions: No Action dicyclomine 20 mg tablet 20 mg PO TID PRN (Reason: abdominal pain and cramping) Qty: 30 RF: 0 metoclopramide HCl [Reglan] 10 mg tablet 10 mg PO Q6H PRN (Reason: nausea and vomiting) Qty: 7 RF: 0 tamsulosin [Flomax] 0.4 mg capsule 0.4 mg PO BEDTIME 5 Days Qty: 5 RF: 0 prednisone 20 mg tablet 20 mg PO DAILY 5 Days Qty: 5 RF: 0 ciprofloxacin HCl [Cipro] 500 mg tablet 500 mg PO Q12H 7 Days Qty: 14 RF: 0 ketorolac 10 mg tablet 10 mg PO Q6H PRN (Reason: pain) 5 Days Qty: 20 RF: 0 PMFSH Past Medical History Source: nursing notes reviewed Medical History Anxiety Depression Kidney stones Social History Social History Alcohol intake: unknown Smoking Status: Current every day smoker Use of substances other than those prescribed or required for medical reasons: Refusing to respond Advance Directives: No Advance Directives Information Provided: No
[2020-05-09] MEDS: 0.9 % Sodium Chloride 1,000 ML 999 ML IVCONT (07:29)
[2020-05-09] MEDS: LORazepam 2 MG/ML VIAL IVPUSH (07:29)
[2020-05-09 08:21] VITALS: BP 107/62; O2SAT 100
[2020-05-09 09:26] VITALS: BP 112/73
== END 2020-05-09 10:48 | disposition home or self-care (01) ==
PROVIDERS: Student in an Organized Health Care Education/Training Program; Emergency Provider Internal Medicine
DX: R10.9 Unspecified abdominal pain (principal); R11.10 Vomiting, unspecified; Z79.899 Other long term (current) drug therapy; F17.200 Nicotine dependence, unspecified, uncomplicated; Z71.6 Tobacco abuse counseling
CPT/HCPCS: 74176; 80307; 81003; 96361; 96374; 96375; 99284; J1200; J2060; J2765

== ENCOUNTER 2020-05-29 05:00 | Emergency (ER) | payer MEDICAID, SELFPAY ==
[2020-05-29 05:10] VITALS: BP 122/64; PULSE 86; RESP 18; TEMP 36.9; O2SAT 97; BMI 19.8
--- NOTE | 2020-05-29 05:48 | ED.ABDPAIN ---
HPI - Abdominal Pain General Chief Complaint: Abdominal Pain Stated Complaint: Abd pain/Vomiting Time Seen by Provider: 05/29/20 05:48 Source: patient Mode of arrival: ambulatory Limitations: no limitations History of Present Illness HPI narrative: Patient with chronic abdominal pain was seen here on 04/25 and 05/[address] scan were done which was negative patient uses cocaine and opiate patient denies any use of cocaine this time and vomiting with upper abdominal pain since yesterday MD elicited complaint: abdominal pain Pertinent past history: gastritis Onset (ago): day(s) (2) Location: epigastric Severity: moderate Exacerbating factors: eating Associated symptoms: nausea and vomiting Related Data Previous Rx's Medication Instructions Recorded ciprofloxacin HCl [Cipro] 500 mg PO Q12H 7 Days #14 tab 04/25/20 ketorolac 10 mg PO Q6H PRN 5 Days #20 tab 04/25/20 prednisone 20 mg PO DAILY 5 Days #5 tab 04/25/20 tamsulosin [Flomax] 0.4 mg PO BEDTIME 5 Days #5 cap 04/25/20 dicyclomine 20 mg PO TID PRN #30 tab 05/08/20 metoclopramide HCl [Reglan] 10 mg PO Q6H PRN #7 tab 05/08/20 lorazepam [Ativan] 1 mg PO Q8-12H PRN #10 tab 05/09/20 Allergies Allergy/AdvReac Type Severity Reaction Status Date / Time No Known Allergies Allergy Verified 05/08/20 17:47 Review of Systems Review of Systems Constitutional : No Weight loss, No Fever, No Chills ENT/Mouth : No sore throat, No Rhinorrhea Eyes: No Eye Pain, No Swelling Cardiovascular : No Chest Pain, no Dyspnea on Exertion, No Orthopnea, No Edema, No Palpitations, no SOB Respiratory : No Cough, No Sputum Gastrointestinal : , No Diarrhea, No Hematochezia, No Melena Genitourinary : No Dysuria, No Urinary Frequency Musculoskeletal : No joint pain, No Myalgias, No Joint Swelling Skin : No Skin Lesions, No rash Neuro : No Weakness, No Numbness, pos Dizziness, No Headache Psych : No Anxiety/Panic, No Depression Heme/Lymph: No Bruising, No Lymphadenopathy Endocrine : No Polyuria, No Polydipsia All other systems reviewed and are negative Physical Exam Vital Signs: Vital Signs: Last Vital Signs Temp 98.4 F 05/29/20 05:10 Pulse 86 05/29/20 05:10 Resp 18 05/29/20 05:10 BP 122/64 05/29/20 05:10 Pulse Ox 97 05/29/20 05:10 Body Mass Index 19.8 Appearance: Alert. Oriented X3. No acute distress. Eyes: Pupils equal, round and reactive to light. ENT: Pharynx normal. Neck: Normal inspection. Neck supple. CVS: Normal heart rate and rhythm. Pulses normal. Respiratory: No respiratory distress. Breath sounds normal. Abdomen: Soft and not distended. Tenderness in epigastric area no rebound tenderness or guarding no mass palpable no cva tenderness Skin: Skin warm and dry. Normal skin color. Normal skin turgor. Extremities: No lower extremity edema. Neuro: Oriented X 3. No motor deficit. No sensory deficit. MDM - Abdominal Pain MDM Narrative Medical decision making narrative: Patient with chronic abdominal pain history of drug abuse cocaine and opiates [address] scan were negative last month. Patient is still complaining of pain will repeat the labs checked the UA. Likely physiological abdominal pain/gastritis. Patient signed out to Dr. Mcqueen pending labs and re-evaluation Medical Records Attestation: I reviewed the patient's medical records. Lab Data Attestation: I reviewed the patient's lab results. Result diagrams: 05/29/20 06:06 05/29/20 06:06 Labs: Lab Results 05/29/20 Range/Units 06:06 Sodium 145 (135-145) mmol/L Potassium 4.0 (3.3-5.1) mmol/l Chloride 111 H (96-108) mmol/L Carbon Dioxide 25 (22-29) mmol/L Anion Gap 13 (12-20) BUN 17 H D (9-16) mg/dL Creatinine 0.67 (0.5-1.4) mg/dL Estim Creat Clear Calc 104.8 Estimated GFR > 60 Random Glucose 118 H (60-115) mg/dL Calcium 9.5 D (8.4-10.2) mg/dL Total Bilirubin 0.4 (0.0-1.0) mg/dL Direct Bilirubin 0.2 (0.0-0.5) mg/dL AST 15 (5-31) U/L ALT 9 (0-31) U/L Alkaline Phosphatase 78 (39-117) U/L Total Protein 7.1 (6.5-8.0) g/dL Albumin 4.4 (3.5-5.0) g/dL Lipase < 4 L (8-78) U/L Discharge Plan Discharge Prescriptions: No Action dicyclomine 20 mg tablet 20 mg PO TID PRN (Reason: abdominal pain and cramping) Qty: 30 RF: 0 metoclopramide HCl [Reglan] 10 mg tablet 10 mg PO Q6H PRN (Reason: nausea and vomiting) Qty: 7 RF: 0 lorazepam [Ativan] 1 mg tablet 1 mg PO Q8-12H PRN (Reason: anxiety) Qty: 10 RF: 0 tamsulosin [Flomax] 0.4 mg capsule 0.4 mg PO BEDTIME 5 Days Qty: 5 RF: 0 prednisone 20 mg tablet 20 mg PO DAILY 5 Days Qty: 5 RF: 0 ciprofloxacin HCl [Cipro] 500 mg tablet 500 mg PO Q12H 7 Days Qty: 14 RF: 0 ketorolac 10 mg tablet 10 mg PO Q6H PRN (Reason: pain) 5 Days Qty: 20 RF: 0 PMFSH Past Medical History Medical History Anxiety Depression Kidney stones Social History Social History Alcohol intake: unknown Smoking Status: Current every day smoker Advance Directives: No Advance Directives Information Provided: No
--- NOTE | 2020-05-29 06:00 | PC.NURSE ---
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 PT REPORTS 10/10 GENERALIZED ABDOMINAL PAIN, NAUSEA/VOMITING, WITH MULTIPLE ER VISITS FOR SIMILAR COMPLAINT IN APRIL 2020. UPON THIS RN ENTERING PATIENT'S ROOM TO OBTAIN LABS AND IV ACCESS, PATIENT REQUESTED WARM BLANKET. THIS RN STATED THAT SHE WOULD GIVE THE PATIENT A WARM BLANKET ONCE THE IV INSERTION WAS COMPLETED. PATIENT THEN RESPONDED BY YELLING AT THIS RN STATING ARE YOU FUCKING KIDDING ME? I HAVE TO WAIT FOR EVERYTHING! I CAN'T HAVE WATER! I'M FUCKING FREEZING! AND I DIDN'T ASK FOR PAIN MEDICINE BITCH, GET YOUR FACTS STRAIGHT! DON'T BE LYING . PATIENT VERBALIZED 10/10 PAIN AND REQUESTED PAIN MEDICATION UPON ARRIVAL TO ED, REQUESTED PAIN MEDICATION FROM , AND ALSO USED CALL [facility] TO REQUEST PAIN MEDICATION. PATIENT GIVEN WARM BLANKET, AND THIS RN MADE IT CLEAR TO PATIENT THAT HER RESPONSE/BEHAVIOR IS NOT TOLERATED. PATIENT HAS ALSO BEEN THROWING PARTIALLY FILLED EMESIS BAGS ON THE GROUND. 20G IV ACCESS ESTABLISHED IN LEFT AC AFTERWARDS. LABS DRAWN AND SENT FOR ANALYSIS. AWAITING RESULTS. ENCOURAGED TO PROVIDE URINE SPECIMEN.
[2020-05-29] MEDS: Famotidine/PF 20 MG/2 ML VIAL IVPUSH (06:11)
[2020-05-29] MEDS: Lidocaine HCl Viscous 2 % 15 ML SOLUTION MUCOUS MEM (06:11)
[2020-05-29] MEDS: ondansetron HCL 4 MG/2 ML VIAL IVPUSH (06:11)
[2020-05-29] MEDS: 0.9 % Sodium Chloride 1,000 ML 999 ML IVCONT (06:11)
[2020-05-29 06:14] LABS: Mean Corpuscular Hemoglobin 30.2 pg (27.0-33.0); PLT CLUMP 1; Red Cell Distribution Width 12.9 % (11.0-16.0)
[2020-05-29 06:16] LABS: Hematocrit 40.7 % (37-47); Hemoglobin 13.7 g/dl (12.0-16.0); Mean Corpuscular HGB Conc 33.7 g/dl (31.0-35.0); Mean Corpuscular Volume 89.8 fL (80-98); Mean Platelet Volume 9.3 fL (9.4-12.3); Platelet Count 284 X10*3/uL (160-400); Red Blood Count 4.53 X10*6/uL (4.20-5.50)
[2020-05-29 06:39] LABS: Alanine Aminotransferase 9 U/L (0-31); Albumin Level 4.4 g/dL (3.5-5.0); Alkaline Phosphatase 78 U/L (39-117); Anion Gap 13 (12-20); Aspartate Amino Transferase 15 U/L (5-31); Bilirubin Direct 0.2 mg/dL (0.0-0.5); Bilirubin Total 0.4 mg/dL (0.0-1.0); Blood Urea Nitrogen 17 mg/dL (9-16); Calcium 9.5 mg/dL (8.4-10.2); Carbon Dioxide 25 mmol/L (22-29); Chloride 111 mmol/L (96-108); Creatinine Clr Calc Pharmacy 104.8; Estimated Glomerular Filt Rate > 60; Glucose Random 118 mg/dL (60-115); Lipase < 4 U/L (8-78); Sodium 145 mmol/L (135-145); Total Protein 7.1 g/dL (6.5-8.0)
--- NOTE | 2020-05-29 06:44 | PC.NURSE ---
URINE SPECIMEN COLLECTED AND SENT FOR ANALYSIS. AWAITING RESULTS. PT CONTINUES TO BELCH AND VOMIT SMALL AMOUNTS INTO EMESIS BAG. STATES THE MEDICINE ISN'T WORKING! NOTIFIED.
[2020-05-29 06:51] LABS: WBC ABN SCTR FOR CBC 1
[2020-05-29 06:57] LABS: Glucose Urine UA NEG (NEG); Leukocyte Esterase Urine NEG (NEG); Nitrite Urine NEG (NEG); Specific Gravity - Urine 1.025 (1.005-1.025); Urine Blood NEG (NEG); Urine Ketones >=80 MG/DL (NEG); Urine Protein 1+ MG/DL (NEG-TRACE)
[2020-05-29 06:58] LABS: Amphetamine Screen Urine Not Detected (Not Detect); Barbiturates, Urine Not Detected (Not Detect); Benzodiazepines Screen Urine Not Detected (Not Detect); Cannabinoid Screen Urine Not Detected (Not Detect); Cocaine Screen Urine Not Detected (Not Detect); Opiate Screen Urine Not Detected (Not Detect); Phencyclidine Screen Urine Not Detected (Not Detect)
[2020-05-29 07:11] VITALS: BP 106/70; PULSE 76; RESP 16; TEMP 36.8; O2SAT 100
[2020-05-29 07:13] LABS: Appearance Urine HAZY; Color Urine AMBER
--- NOTE | 2020-05-29 07:13 | US_ITS ---
EXAMINATION: US ABDOMEN LIMITED CLINICAL INFORMATION: Right upper quadrant pain. COMPARISON: CT scan 05/09/2020 TECHNIQUE: Real-time imaging of the right upper quadrant abdominal viscera. FINDINGS: PANCREAS: The visualized portion of the pancreas head and body are normal, portion of the pancreatic body and tail, not visualized are obscured by bowel gas. LIVER: Normal. The liver is normal in size. The liver contour is normal. Parenchymal echogenicity is normal. No focal hepatic lesion. There is no intrahepatic biliary duct dilatation seen. GALLBLADDER: There are gallstones. The gallbladder is physiologically distended , without evidence of wall thickening or pericholecystic fluid. COMMON BILE DUCT: Normal in caliber measuring 0.1 cm in diameter. RIGHT KIDNEY: Normal. No hydronephrosis. No renal calculi or focal parenchymal lesions. The kidney measures 9.5 cm in maximum dimension. There is a simple renal cyst measuring 6 x 6 x 7 mm. FREE FLUID: None. US/US abdomen limited IMPRESSION: Cholelithiasis without ultrasound evidence of acute cholecystitis. Subcentimeter right renal cyst. Ultrasound otherwise is normal. No ultrasound explanation for patient's pain symptoms.
[2020-05-29 07:19] LABS: Calcium Oxalate Crystals Urine 1+ /LPF; Mucus Urine 3+ /LPF; RBC Urine 0 /HPF (0); Squamous Epithelial Cell Urine 2+ /LPF; UACC CULT YES
[2020-05-29 07:21] LABS: UPreg QC Valid YES; Urine Pregnancy NEGATIVE (NEGATIVE)
[2020-05-29 07:58] LABS: Band Neutrophils Percent 0 % (3-5); Basophils Percent Manual 3 % (0-1); Lymphocytes Percent Manual 7 % (20-40); Neutrophils Percent Manual 90 % (45-73); RBC Morphology NORMAL
[2020-05-29 07:59] LABS: Platelet Estimate NORMAL (NORMAL); Platelet Morphology Comment NORMAL
--- NOTE | 2020-05-29 08:00 | PC.NURSE ---
ultrasound at bedside performing bedside us
[2020-05-29] MEDS: Metoclopramide HCl 10 MG/2 ML VIAL IVPUSH (08:24)
[2020-05-29] MEDS: diphenhydrAMINE HCL 50 MG/ML VIAL 25 MG IVPUSH (08:24)
--- NOTE | 2020-05-29 08:27 | PC.NURSE ---
pt vomiting a medium amount of yellow vomits and still continuos on burping, pt medicated with reglan and benadryl.
[2020-05-29 08:28] VITALS: BP 97/57; RESP 70; O2SAT 100
--- NOTE | 2020-05-29 09:01 | PC.NURSE ---
pt reports not feeling any better after the medication, no vomiting at this time, pt requested and recieved ice chips
[2020-05-29 09:58] LABS: Basophils Abs Manual 0.4 X10*3/uL (0.0-0.3); Lymphocytes Absolute Manual 0.9 X10*3/uL (0.6-4.8); Neutrophils Absolute Manual 11.1 X10*3/uL (2.2-7.9); White Blood Count 12.3 X10*3/uL (4.8-10.8)
== END 2020-05-29 10:05 | disposition home or self-care (01) ==
PROVIDERS: Internal Medicine; Emergency Provider Emergency Medicine
DX: K80.20 Calculus of gallbladder without cholecystitis without obstruction (principal); R10.10 Upper abdominal pain, unspecified; N28.1 Cyst of kidney, acquired; F14.10 Cocaine abuse, uncomplicated; F11.10 Opioid abuse, uncomplicated; F17.200 Nicotine dependence, unspecified, uncomplicated; Z87.442 Personal history of urinary calculi
CPT/HCPCS: 36415; 76705; 80048; 80076; 80307; 81001; 81003; 81025; 83690; 85007; 85027; 87086; 96361; 96374; 96375; 99284; J1200; J1610; J2405; J2765

== ENCOUNTER 2020-06-25 13:23 | Emergency (ER) | payer MEDICAID, SELFPAY ==
[2020-06-25 13:36] VITALS: BP 90/58; PULSE 100; RESP 18; TEMP 36.6; O2SAT 100; BMI 17.7
[2020-06-25 14:35] LABS: Glucose Urine UA NEG (NEG); Leukocyte Esterase Urine NEG (NEG); Nitrite Urine NEG (NEG); PH 5.5 (5.0-8.0); Specific Gravity - Urine >= 1.030 (1.005-1.025); Urine Blood TRACE (NEG); Urine Ketones NEG (NEG); Urine Protein NEG (NEG-TRACE)
[2020-06-25 14:38] LABS: Appearance Urine HAZY; Color Urine YELLOW
--- NOTE | 2020-06-25 14:43 | ED.FEMALEGU ---
HPI - Female Genitourinary General Chief complaint: Urogenital-Female Stated complaint: ?uti Time Seen by Provider: 06/25/20 14:43 Source: patient Mode of arrival: ambulatory Limitations: no limitations History of Present Illness MD elicited complaint: dysuria and UTI Severity: mild Vaginal bleeding: none Urinary symptoms: Dysuria Associated symptoms: denies other symptoms Treatment prior to arrival: none Sexual activity: No Patient : No Related Data Previous Rx's Medication Instructions Recorded ciprofloxacin HCl [Cipro] 500 mg PO Q12H 7 Days #14 tab 04/25/20 ketorolac 10 mg PO Q6H PRN 5 Days #20 tab 04/25/20 prednisone 20 mg PO DAILY 5 Days #5 tab 04/25/20 tamsulosin [Flomax] 0.4 mg PO BEDTIME 5 Days #5 cap 04/25/20 dicyclomine 20 mg PO TID PRN #30 tab 05/08/20 metoclopramide HCl [Reglan] 10 mg PO Q6H PRN #7 tab 05/08/20 lorazepam [Ativan] 1 mg PO Q8-12H PRN #10 tab 05/09/20 metoclopramide HCl [Reglan] 10 mg PO Q6H PRN #30 tab 05/29/20 omeprazole 40 mg PO DAILY 14 Days #14 cap 05/29/20 nitrofurantoin monohyd/m-cryst 100 mg PO Q12H 3 Days #6 cap 06/25/20 [Macrobid] phenazopyridine [Pyridium] 100 mg PO TID PRN #6 tab 06/25/20 Allergies Allergy/AdvReac Type Severity Reaction Status Date / Time No Known Allergies Allergy Verified 05/08/20 17:47 Review of Systems Review of Systems: Constitutional: No Weight loss, No Fever, No Chills, No Night Sweats, No Fatigue, No Malaise ENT/Mouth: No Hearing loss, No Ear Pain, No Nasal Congestion, No Sinus Pain, No Hoarseness, No sore throat, No Rhinorrhea, No Swallowing Difficulty Eyes: No Eye Pain, No Swelling, No Redness, No Foreign Body, No Discharge, No Vision Changes Cardiovascular: No Chest Pain, No SOB, No Dyspnea on Exertion, No Orthopnea, No Edema, No Palpitations Respiratory: No Cough, No Sputum, No Wheezing, No Smoke Exposure, No Dyspnea Gastrointestinal: No Nausea, No Vomiting, No Diarrhea, No Constipation, No abdominal Pain, No Hematochezia, No Melena Genitourinary: no irregular bleeding, + Dysuria, No Urinary Frequency, No Hematuria, No Urinary Incontinence, No Urgency, No Flank Pain, No Urinary Flow Changes Musculoskeletal: No joint pain, No Myalgias, No Joint Swelling Skin: No Skin Lesions, No rash Neuro: No Weakness, No Numbness, No Paresthesias, No Loss of Consciousness, No Dizziness, No Headache Psych: No Social Issues Heme/Lymph: No Bruising, No Bleeding,No Lymphadenopathy Endocrine: No Polyuria, No Polydipsia, No Temperature Intolerance Yes all other systems are reviewed and are negative [facility] Past Medical History Medical History Anxiety Depression Kidney stones Social History Social History Alcohol intake: never Smoking Status: Current every day smoker Substance Use Type: Crack/Cocaine Advance Directives: No Advance Directives Information Provided: Yes Physical Exam Vital Signs: Vital Signs: Last Vital Signs Temp 97.8 F 06/25/20 13:36 Pulse 100 06/25/20 13:36 Resp 18 06/25/20 13:36 BP 90/58 L 06/25/20 13:36 Pulse Ox 100 06/25/20 13:36 Body Mass Index 17.7 Reviewed Const: General: cooperative and healthy appearing; No acute distress or intoxicated appearing Nutritional Appearance: average body habitus Orientation/consciousness: patient oriented x3 HENMT: Head: Yes normal to inspection Ears: hearing grossly normal bilaterally Eyes: General: appearance normal, both eyes and all related structures Visual Robertson: normal visual robertson by confrontation Neck: Neck: Yes normal visual inspection, No positive Brudzinski's sign, No positive Kernig's sign and No tender Thyroid: Thyroid normal Chest: Chest palpation & inspection: normal inspection of the chest Resp: Effort & Inspection: normal respiratory effort Auscultation: clear to auscultation bilaterally Cardio: Jugular venous distension: no JVD Rate: regular rate Rhythm: regular rhythm Heart sounds: S1 normal heart sound present and S2 normal heart sound present GI: Inspection: Yes normal to inspection Percussion: Yes normal to percussion Auscultation: normal bowel sounds : General: Yes no CVA tenderness Back/Spine/Pelvis: Back: no CVA tenderness Skin: General skin exam: no rashes or lesions noted Neuro: General: patient oriented x3 Extrem: General: Yes normal to inspection Course Course Course Narrative: Pain only with urination and hard time starting her flow consistent with her prior UTI. UA positive with ileal so otherwise positive bacteria but no WBC or RBC. She is adamant feels like her prior UTIs. Will send for urine culture start her on 3 days of Macrobid and Pyridium with follow-up on culture. No abdominal pain/pelvic pain/back pain. No signs or symptoms systemic infection. She is well nontoxic appearing. Stable for discharge. MDM - Female Genitourinary Lab Data Labs: Lab Results 06/25/20 Range/Units 14:14 Urine Color YELLOW Urine Appearance HAZY Urine pH 5.5 (5.0-8.0) Ur Specific [place] >= 1.030 H (1.005-1.025) Urine Protein NEG (NEG-TRACE) MG/DL Urine Glucose (UA) NEG (NEG) MG/DL Urine Ketones NEG (NEG) MG/DL Urine Blood TRACE (NEG) Urine Nitrite NEG (NEG) Ur Leukocyte Esterase NEG (NEG) Urine RBC 0-2 (0) /HPF Urine WBC 0-2 (0-4) /HPF Ur Squamous Epith Cells 3+ /LPF Urine Bacteria TRACE /LPF Discharge Plan Discharge Clinical Impression: Dysuria Patient Disposition: Home, Self-Care Instructions: Dysuria (ED) Additional Instructions: Drink plenty of fluids Take medication as prescribed Return if any concerns or worsening symptoms Otherwise follow-up with primary care doctor as discussed Thank you Prescriptions: New phenazopyridine [Pyridium] 100 mg tablet 100 mg PO TID PRN (Reason: pain) Qty: 6 RF: 0 nitrofurantoin monohyd/m-cryst [Macrobid] 100 mg capsule 100 mg PO Q12H 3 Days Qty: 6 RF: 0 No Action dicyclomine 20 mg tablet 20 mg PO TID PRN (Reason: abdominal pain and cramping) Qty: 30 RF: 0 metoclopramide HCl [Reglan] 10 mg tablet 10 mg PO Q6H PRN (Reason: nausea and vomiting) Qty: 7 RF: 0 lorazepam [Ativan] 1 mg tablet 1 mg PO Q8-12H PRN (Reason: anxiety) Qty: 10 RF: 0 omeprazole 40 mg capsule,delayed release(DR/EC) 40 mg PO DAILY 14 Days Qty: 14 RF: 0 metoclopramide HCl [Reglan] 10 mg tablet 10 mg PO Q6H PRN (Reason: nausea and vomiting) Qty: 30 RF: 0 tamsulosin [Flomax] 0.4 mg capsule 0.4 mg PO BEDTIME 5 Days Qty: 5 RF: 0 prednisone 20 mg tablet 20 mg PO DAILY 5 Days Qty: 5 RF: 0 ciprofloxacin HCl [Cipro] 500 mg tablet 500 mg PO Q12H 7 Days Qty: 14 RF: 0 ketorolac 10 mg tablet 10 mg PO Q6H PRN (Reason: pain) 5 Days Qty: 20 RF: 0 Referrals: Paul Brumfield MD [Primary Care Provider] - 1 week
[2020-06-25 15:30] LABS: Bacteria Urine TRACE /LPF; RBC Urine 0-2 /HPF (0); Squamous Epithelial Cell Urine 3+ /LPF; WBC Urine 0-2 /HPF (0-4)
[2020-06-25 16:53] LABS: UPreg QC Valid YES; Urine Pregnancy NEGATIVE (NEGATIVE)
== END 2020-06-25 16:16 | disposition home or self-care (01) ==
PROVIDERS: Nurse Practitioner Primary Care; Emergency Provider Emergency Medicine; PCP Internal Medicine
DX: R30.0 Dysuria (principal); F17.200 Nicotine dependence, unspecified, uncomplicated; Z87.442 Personal history of urinary calculi
CPT/HCPCS: 81001; 81025; 99283

== ENCOUNTER 2020-09-29 14:35 | Emergency (ER) | payer MEDICAID, SELFPAY ==
--- NOTE | ~2020-09-29 | XR_ITS ---
EXAMINATION: XR CHEST CLINICAL INFORMATION: Cough with shortness of breath COMPARISON: May 08, 2020 TECHNIQUE: AP portable view of the chest was obtained. FINDINGS: There is no evidence of acute parenchymal disease, pneumothorax, or pleural effusion. Heart normal size. No evidence of pulmonary edema. Goss rods are seen in place. There is mild scoliosis mid thoracic spine convex right. XR/XR chest 1V IMPRESSION: No acute disease.
--- NOTE | 2020-09-29 14:47 | PC.NURSE ---
patient has been called twice to triage and is not in the covid section or anywhere in the WR. will attempt again after additional patients are triaged
[2020-09-29 15:02] VITALS: BP 115/84; PULSE 123; RESP 16; TEMP 37.1; O2SAT 98; BMI 17.7
[2020-09-29 16:51] LABS: Influenza A PCR NEGATIVE (Negative); Influenza B PCR NEGATIVE (Negative); Resp Syncy Virus RNA Qual PCR NEGATIVE (Negative); SARS COV2 PCR INHOUSE NEGATIVE (Negative)
--- NOTE | 2020-09-29 17:18 | ED_ITS ---
HPI - SOB/Dyspnea General Chief Complaint: Dyspnea Stated Complaint: sob covid Time Seen by Provider: 09/29/20 17:17 Source: patient Mode of arrival: ambulatory Limitations: no limitations History of Present Illness HPI Narrative: 35 y/o female with history of anxiety, depression, kidney stones, active smoker, hx UTI's, hx chronic abdominal pain who presents with almost 2 weeks of SOB, productive cough and wheezing. She reports being seen last Sunday and was noted to have wheezing so she was given 5 days of prednisone. She states her breathing has not improved. She has a cough productive of green and yellow p hlegm, worse in the morning. She continues to smoke but has been trying to quit. No known COVID symptoms. MD elicited complaint: shortness of breath and cough Onset (ago): day(s) (10) Timing: constant Severity: moderate Exacerbating factors: coughing and inspiration Relieving factors: rest and medication Associated symptoms: wheezing and sputum production Treatment prior to arrival: none Related Data Home oxygen amount: none Previous Rx's Medication Instructions Recorded ciprofloxacin HCl [Cipro] 500 mg PO Q12H 7 Days #14 tab 04/25/20 ketorolac 10 mg PO Q6H PRN 5 Days #20 tab 04/25/20 prednisone 20 mg PO DAILY 5 Days #5 tab 04/25/20 tamsulosin [Flomax] 0.4 mg PO BEDTIME 5 Days #5 cap 04/25/20 dicyclomine 20 mg PO TID PRN #30 tab 05/08/20 metoclopramide HCl [Reglan] 10 mg PO Q6H PRN #7 tab 05/08/20 lorazepam [Ativan] 1 mg PO Q8-12H PRN #10 tab 05/09/20 metoclopramide HCl [Reglan] 10 mg PO Q6H PRN #30 tab 05/29/20 omeprazole 40 mg PO DAILY 14 Days #14 cap 05/29/20 nitrofurantoin monohyd/m-cryst 100 mg PO Q12H 3 Days #6 cap 06/25/20 [Macrobid] phenazopyridine [Pyridium] 100 mg PO TID PRN #6 tab 06/25/20 albuterol sulfate 1 inh INHALATION QID PRN #6.7 g 09/29/20 azithromycin [Zithromax Z-Nain] See Rx Instructions .ROUTE 09/29/20 .COMPLEX #6 tab hydrocodone-homatropine [Hycodan] 5 ml PO Q6H PRN #60 ml 09/29/20 prednisone 10 mg PO PER PKG DIR #48 ea 09/29/20 Allergies Allergy/AdvReac Type Severity Reaction Status Date / Time No Known Allergies Allergy Verified 09/29/20 15:06 Review of Systems Review of Systems: Constitutional: No Fever, No Chills ENT/Mouth: + sore throat, No Rhinorrhea, No Swallowing Difficulty Cardiovascular: No Chest Pain, + SOB, No Orthopnea, No Edema Respiratory: + Cough, + Sputum, + Wheezing, No dyspnea Gastrointestinal: No Nausea, No Vomiting, No Diarrhea, No abdominal Pain Musculoskeletal: No joint pain, No Myalgias Skin: No Skin Lesions, No rash Neuro: No Weakness, No Numbness, No Dizziness, No Headache Heme/Lymph: No Lymphadenopathy PMFSH Past Medical History Attestation statement: The following information was validated with the patient. Medical History Anxiety Depression Kidney stones Social History Social History Alcohol intake: never Smoking Status: Current every day smoker Substance Use Type: Crack/Cocaine Advance Directives: No Advance Directives Information Provided: Yes Physical Exam Vital Signs: Vital Signs: Last Vital Signs Temp 98.7 F 09/29/20 15:02 Pulse 77 09/29/20 17:36 Resp 16 09/29/20 15:02 BP 115/84 09/29/20 15:02 Pulse Ox 98 09/29/20 15:02 Body Mass Index 17.7 Appearance: Alert. Oriented X3. No acute distress. HEENT: normal inspection CVS: Normal heart rate and rhythm. Pulses normal. Respiratory: No respiratory distress. End expiratory wheezes in bilateral bases, no rales or rhonchi Skin: Skin warm and dry. Normal skin color. Normal skin turgor. No rashes. Extremities: atraumatic, no edema. negative Lu's sign. Neuro: Oriented X 3. No motor deficit. No sensory deficit. Course Course Course Narrative: 35 y/o female presenting with SOB, cough and wheezing. Initially slightly improved with short course of prednisone. CXR negative and COVID negative today. Will give neb treatment and reassess. Concern for acute bronchitis vs reactive airway disease. She was advised to quit smoking and knows she needs to quit. Reevaluation(s) Reevaluation #1: Significant improvement after neb - will d/c with abx, steroids, albuterol, and anti-tussive. Stable for d/c with plan to f/u with PCP. MDM - SOB/Dyspnea Lab Data Labs: Lab Results 09/29/20 Range/Units 15:33 Coronavirus (PCR) NEGATIVE (Negative) Influenza Type A (PCR) NEGATIVE (Negative) Influenza Type B (PCR) NEGATIVE (Negative) RSV RNA Qual (PCR) NEGATIVE (Negative) Discharge Plan Discharge Clinical Impression: Bronchitis Patient Disposition: Home, Self-Care Instructions: Acute Bronchitis (ED), Wheezing (ED) Additional Instructions: You are being treated for bronchitis. Take all of the prescribed medications as directed. Your COVID test was negative. Your chest x-ray was normal. STOP SMOKING. Follow up with your doctor in 2 days. If you have worsening symptoms come back to the ER for further evaluation. Prescriptions: New albuterol sulfate 90 mcg/actuation HFA aerosol inhaler 1 inh inhalation QID PRN (Reason: shortness of breath or wheezing) Qty: 6.7 RF: 0 prednisone 10 mg tablets,dose pack 10 mg PO PER PKG DIR Qty: 48 RF: 0 hydrocodone-homatropine [Hycodan] 5-1.5 mg/5 mL (5 mL) syrup 5 ml PO Q6H PRN (Reason: cough) Qty: 60 RF: 0 azithromycin [Zithromax Z-Nain] 250 mg tablet See Rx Instructions .ROUTE .COMPLEX Qty: 6 RF: 0 No Action dicyclomine 20 mg tablet 20 mg PO TID PRN (Reason: abdominal pain and cramping) Qty: 30 RF: 0 metoclopramide HCl [Reglan] 10 mg tablet 10 mg PO Q6H PRN (Reason: nausea and vomiting) Qty: 7 RF: 0 lorazepam [Ativan] 1 mg tablet 1 mg PO Q8-12H PRN (Reason: anxiety) Qty: 10 RF: 0 omeprazole 40 mg capsule,delayed release(DR/EC) 40 mg PO DAILY 14 Days Qty: 14 RF: 0 metoclopramide HCl [Reglan] 10 mg tablet 10 mg PO Q6H PRN (Reason: nausea and vomiting) Qty: 30 RF: 0 tamsulosin [Flomax] 0.4 mg capsule 0.4 mg PO BEDTIME 5 Days Qty: 5 RF: 0 prednisone 20 mg tablet 20 mg PO DAILY 5 Days Qty: 5 RF: 0 ciprofloxacin HCl [Cipro] 500 mg tablet 500 mg PO Q12H 7 Days Qty: 14 RF: 0 ketorolac 10 mg tablet 10 mg PO Q6H PRN (Reason: pain) 5 Days Qty: 20 RF: 0 phenazopyridine [Pyridium] 100 mg tablet 100 mg PO TID PRN (Reason: pain) Qty: 6 RF: 0 nitrofurantoin monohyd/m-cryst [Macrobid] 100 mg capsule 100 mg PO Q12H 3 Days Qty: 6 RF: 0 Interventions: ED Discharge Assessment Last Done: 09/29/20 19:12 Discharge Date/Time: 09/29/20 19:13
[2020-09-29] MEDS: Albuterol Sulfate (0.083%) 2.5 MG/3 ML VIAL.NEB 10 MG INHALE (17:32)
[2020-09-29 17:36] VITALS: PULSE 77; O2SAT 100
[2020-09-29] MEDS: guaiFEN/Codeine SF 200/20/10ML 10 ML LIQUID PO (18:15)
[2020-09-29] MEDS: predniSONE 20 MG TABLET 60 MG PO (18:15)
== END 2020-09-29 19:13 | disposition home or self-care (01) ==
PROVIDERS: Emergency Provider Internal Medicine; PCP Internal Medicine
DX: J20.9 Acute bronchitis, unspecified (principal); Z20.822 Contact with and (suspected) exposure to COVID-19; F17.210 Nicotine dependence, cigarettes, uncomplicated; F41.9 Anxiety disorder, unspecified; F14.90 Cocaine use, unspecified, uncomplicated; Z87.442 Personal history of urinary calculi; Z87.440 Personal history of urinary (tract) infections; Z79.899 Other long term (current) drug therapy; Z79.52 Long term (current) use of systemic steroids
CPT/HCPCS: 0241U; 36415; 71045; 94640; 94644; 99283; 99284

== ENCOUNTER 2021-05-31 17:54 | Outpatient (REF) | payer MEDICAID, SELFPAY ==
[2021-05-31 18:43] LABS: Influenza A PCR NEGATIVE (Negative); Influenza B PCR NEGATIVE (Negative); Resp Syncy Virus RNA Qual PCR NEGATIVE (Negative); SARS COV2 PCR INHOUSE NEGATIVE (Negative)
== END 2021-05-31 17:55 | disposition home or self-care (01) ==
LOC: HO.LNP 17:54
PROVIDERS: Visit Provider Internal Medicine
DX: Z20.822 Contact with and (suspected) exposure to COVID-19 (principal); R43.9 Unspecified disturbances of smell and taste
CPT/HCPCS: 0241U

== ENCOUNTER 2021-06-25 10:23 | Emergency (ER) | payer MEDICAID, SELFPAY ==
[2021-06-25 11:02] VITALS: BP 119/56; PULSE 100; RESP 18; TEMP 36.7; O2SAT 98; BMI 20.1
[2021-06-25 12:14] LABS: COVID-19 Test Negative (Negative)
--- NOTE | 2021-06-25 14:44 | ED.URI ---
HPI - URI/Sore Throat General Chief Complaint: Upper Respiratory Symptoms Stated Complaint: cough Time Seen by Provider: 06/25/21 14:44 Source: patient Mode of arrival: ambulatory Limitations: no limitations History of Present Illness HPI Narrative: 36 y/o female presents to the ER with cough that started yesterday. She has been around her 2 daughters age 7 and 15 who also started getting sick yesterday with fever and sore throat. One of their friends recently had COVID. Patient is vaccinated. She has no medical comorbidities. No SOB or difficulty breathing. No chest pain. MD elicited complaint: cough Onset (ago): day(s) (1) Consistency: intermittent Severity: mild Able to tolerate fluids by mouth: Yes Exacerbating factors: nothing Relieving factors: nothing Context: sick contacts Associated symptoms: denies other symptoms Treatments prior to arrival: none Related Data Previous Rx's Medication Instructions Recorded ciprofloxacin HCl 500 mg tablet 500 mg PO Q12H 7 Days #14 tab 04/25/20 (Cipro) ketorolac 10 mg tablet 10 mg PO Q6H PRN 5 Days #20 tab 04/25/20 prednisone 20 mg tablet 20 mg PO DAILY 5 Days #5 tab 04/25/20 tamsulosin 0.4 mg capsule (Flomax) 0.4 mg PO BEDTIME 5 Days #5 cap 04/25/20 dicyclomine 20 mg tablet 20 mg PO TID PRN #30 tab 05/08/20 metoclopramide HCl 10 mg tablet 10 mg PO Q6H PRN #7 tab 05/08/20 (Reglan) lorazepam 1 mg tablet (Ativan) 1 mg PO Q8-12H PRN #10 tab 05/09/20 metoclopramide HCl 10 mg tablet 10 mg PO Q6H PRN #30 tab 05/29/20 (Reglan) omeprazole 40 mg capsule,delayed 40 mg PO DAILY 14 Days #14 cap 05/29/20 release nitrofurantoin 100 mg PO Q12H 3 Days #6 cap 06/25/20 monohydrate/macrocrystals 100 mg capsule (Macrobid) phenazopyridine 100 mg tablet 100 mg PO TID PRN #6 tab 06/25/20 (Pyridium) azithromycin 250 mg tablet See Rx Instructions .ROUTE 09/29/20 (Zithromax Z-Nain) .COMPLEX #6 tab hydrocodone-homatropine 5 mg-1.5 5 ml PO Q6H PRN #60 ml 09/29/20 mg/5 mL (5 mL) oral syrup (Hycodan) prednisone 10 mg tablets in a dose 10 mg PO PER PKG DIR #48 ea 09/29/20 pack albuterol sulfate 90 mcg/actuation 1 inh INHALATION QID PRN #6.7 g 05/31/21 aerosol inhaler Allergies Allergy/AdvReac Type Severity Reaction Status Date / Time No Known Allergies Allergy Verified 05/31/21 16:54 Review of Systems Review of Systems: Constitutional: No Fever, No Chills ENT/Mouth: No sore throat, No Rhinorrhea Cardiovascular: No Chest Pain, No SOB Respiratory: + Cough, No Sputum, No Wheezing, No dyspnea Gastrointestinal: No Nausea, No Vomiting, No Diarrhea, No abdominal Pain Musculoskeletal: No joint pain, No Myalgias Skin: No Skin Lesions, No rash Neuro: No Weakness, No Numbness, No Dizziness, No Headache Psych: +Anxiety/Panic Heme/Lymph: No Lymphadenopathy PMFSH Past Medical History Medical History (Updated 06/25/21 @ 14:46 by SYDNEY Monge) Anxiety Calculus of kidney Depression Kidney stones Social History Social History Alcohol intake: never Substance Use Type: Crack/Cocaine Advance Directives: No Advance Directives Information Provided: No Patient : Yes Physical Exam Vital Signs: Vital Signs: Last Vital Signs Temp 98.0 F 06/25/21 11:02 Pulse 100 06/25/21 11:02 Resp 18 06/25/21 11:02 BP 119/56 L 06/25/21 11:02 Pulse Ox 98 06/25/21 11:02 BMI result Body Mass Index 20.1 Appearance: Alert. Oriented X3. No acute distress. ENT: Pharynx normal. Neck: Normal inspection. Neck supple. CVS: Normal heart rate and rhythm. Pulses normal. Respiratory: No respiratory distress. Breath sounds normal. Abdomen: Soft and nontender. +BS x4 Skin: Skin warm and dry. Normal skin color. Normal skin turgor. No rashes. Extremities: No lower extremity edema. Neuro: Oriented X 3. Nonfocal Course Course Course Narrative: 36-year-old female presents to the ER with a mild dry cough x1 day. Her vital signs are normal in her exam is benign. She is found to be COVID negative. Although she is here with her 7-year-old and 15-year-old daughters who are found to be COVID positive today. We discussed the likelihood of a false negative test and educated the patient that she is most likely COVID positive. No further testing is indicated at this time. She is stable for discharge home for self isolation and quarantine with her 2 daughters who have COVID. MDM - URI/Sore Throat Lab Data Labs: Lab Results 06/25/21 Range/Units 11:44 COVID-19 ([facility]) Negative (Negative) COVID-19 Clin Com See Note Critical Care Time Critical Care Time Critical Care Time: No Discharge Plan Discharge Clinical Impression: Viral infection Patient Disposition: Home, Self-Care Instructions: Viral Syndrome (ED) Additional Instructions: Your COVID test today was NEGATIVE. This is most likely a FALSE negative and you most likely have COVID-19 given your exposure to your daughters who have COVID. You DO NOT need to be retested. Act as though your test is positive and do not go out in public for the next 10 days. Rest and drink plenty of fluids. Take [id number] cold and flu medications as needed for your symptoms. Follow up with your doctor as needed. If you develop new or worsening symptoms call 911 or come back to the ER for further evaluation. Prescriptions: No Action dicyclomine 20 mg tablet 20 mg PO TID PRN (Reason: abdominal pain and cramping) Qty: 30 RF: 0 metoclopramide HCl [Reglan] 10 mg tablet 10 mg PO Q6H PRN (Reason: nausea and vomiting) Qty: 7 RF: 0 lorazepam [Ativan] 1 mg tablet 1 mg PO Q8-12H PRN (Reason: anxiety) Qty: 10 RF: 0 omeprazole 40 mg capsule,delayed release(DR/EC) 40 mg PO DAILY 14 Days Qty: 14 RF: 0 metoclopramide HCl [Reglan] 10 mg tablet 10 mg PO Q6H PRN (Reason: nausea and vomiting) Qty: 30 RF: 0 prednisone 10 mg tablets,dose pack 10 mg PO PER PKG DIR Qty: 48 RF: 0 hydrocodone-homatropine [Hycodan] 5-1.5 mg/5 mL (5 mL) syrup 5 ml PO Q6H PRN (Reason: cough) Qty: 60 RF: 0 azithromycin [Zithromax Z-Nain] 250 mg tablet See Rx Instructions .ROUTE .COMPLEX Qty: 6 RF: 0 tamsulosin [Flomax] 0.4 mg capsule 0.4 mg PO BEDTIME 5 Days Qty: 5 RF: 0 prednisone 20 mg tablet 20 mg PO DAILY 5 Days Qty: 5 RF: 0 ciprofloxacin HCl [Cipro] 500 mg tablet 500 mg PO Q12H 7 Days Qty: 14 RF: 0 ketorolac 10 mg tablet 10 mg PO Q6H PRN (Reason: pain) 5 Days Qty: 20 RF: 0 phenazopyridine [Pyridium] 100 mg tablet 100 mg PO TID PRN (Reason: pain) Qty: 6 RF: 0 nitrofurantoin monohyd/m-cryst [Macrobid] 100 mg capsule 100 mg PO Q12H 3 Days Qty: 6 RF: 0 albuterol sulfate 90 mcg/actuation HFA aerosol inhaler 1 inh inhalation QID PRN (Reason: shortness of breath or wheezing) Qty: 6.7 RF: 0
== END 2021-06-25 15:19 | disposition home or self-care (01) ==
PROVIDERS: Emergency Provider Emergency Medicine
DX: B34.9 Viral infection, unspecified (principal); Z20.822 Contact with and (suspected) exposure to COVID-19
CPT/HCPCS: 87635; 99283